=== PATIENT | male | born 1965 | race Caucasian/White ===

== ENCOUNTER 2022-03-20 20:49 | Emergency (ER) | payer MEDICARE ==
[2022-03-20] MEDS ORDERED: BABY ASPIRIN 81 MG CHEW PO ONE (20:55)
--- NOTE | 2022-03-20 20:55 | ERPHSYRPT ---
- History of Present Illness Time Seen by Provider: 03/20/22 20:55 Historian: patient Exam Limitations: no limitations Physician History: This is a 56 y/o white male patient who presents with left ant cp with radiation to left shoulder and left back. pt was out working on lawn when onset of pain occurred. pt took one ntg and 2 baby asa and arrives to ed with 6/10 pain level. onset occurred 45 minutes [employer]. pt states he has had 2 heart attacks in the past. he was told many years ago he had narrowed heart vessels on a cardiac cath. no stents. no cabg. he lives in [facility] now and his last pcp was in [place]. pt has h/o dm, htn, cadz and elevated cholesterol Timing/Duration: today Activities at Onset: activity (lawn work) Quality: tightness Location: other (left ant chest) Chest Pain Radiation: arm (left), back (left) Severity of Pain-Max: moderate Severity of Pain-Current: mild (to moderate) Modifying Factors: Improves With: nitroglycerin, aspirin Prior Chest Pain/Cardiac Workup: cardiac cath, heart attack Nitro Today/Relief: 0.4 mg x 1, provided at home, mild relief Aspirin Treatment Today: 81 mg x 2, provided at home Allergies/Adverse Reactions: No Known Drug Allergies Allergy (Verified 03/20/22 21:03) Home Medications: Cetirizine HCl [Zyrtec] 50 mg PO DAILY 03/20/22 [History] Insulin Glargine [Lantus Insulin] 25 units SQ DAILY 03/20/22 [History] Losartan Potassium 50 mg [Cozaar 50 MG] 50 mg PO DAILY 03/20/22 [History] Metformin HCl Xr 500 mg [Glucophage XR 500 MG] 1,000 mg PO BID 03/20/22 [History] Metoprolol Succinate 50 mg [Toprol Xl 50 MG] 100 mg PO BID 03/20/22 [History] Tamsulosin HCl 0.4 mg [Flomax 0.4 MG] 0.8 mg PO DAILY 03/20/22 [History] hydroCHLOROthiazide [Hydrochlorothiazide] 25 mg PO DAILY 03/20/22 [History] Travel Risk - International Travel Have you traveled outside of the country in past 3 weeks: No - Coronavirus Screening Are you exhibiting any of the following symptoms?: No Close contact with a COVID-19 positive Pt in past 14-21 Days: No - Review of Systems Constitutional: No Symptoms Eyes: No Symptoms Ears, Nose, & Throat: No Symptoms Respiratory: No Symptoms Cardiac: Chest Pain Abdominal/Gastrointestinal: No Symptoms Genitourinary Symptoms: No Symptoms Musculoskeletal: No Symptoms Skin: No Symptoms Neurological: No Symptoms Psychological: No Symptoms Endocrine: No Symptoms Hematologic/Lymphatic: No Symptoms Immunological/Allergic: No Symptoms All Other Systems: Reviewed and Negative - Past Medical History Pertinent Past Medical History: Yes Cardiac History: Coronary Artery Disease, Hypertension Endocrine Medical History: Diabetes Type I - Past Surgical History Past Surgical History: Yes - Nursing Vital Signs Nursing Vital Signs: Initial Vital Signs Temperature 97.3 F 03/20/22 20:52 Pulse Rate 95 H 03/20/22 20:52 Respiratory Rate 15 03/20/22 20:52 Blood Pressure 172/87 03/20/22 20:52 O2 Sat by Pulse Oximetry 98 03/20/22 20:52 Pain Scale Pain Intensity 4 - Physical Exam General Appearance: no apparent distress, alert, anxiety Eye Exam: PERRL/EOMI, eyes nml inspection Ears, Nose, Throat Exam: normal ENT inspection, moist mucous membranes Neck Exam: normal inspection, non-tender, supple, full range of motion Respiratory Exam: normal breath sounds, chest tenderness, lungs clear, airway intact, No respiratory distress Cardiovascular Exam: regular rate/rhythm, normal heart sounds, normal peripheral pulses Gastrointestinal/Abdomen Exam: soft, normal bowel sounds, No tenderness Rectal Exam: not done Back Exam: normal inspection, normal range of motion, No CVA tenderness, No vertebral tenderness Extremity Exam: normal inspection, normal range of motion, pelvis stable Neurologic Exam: alert, oriented x 3, cooperative, color maker formulator II-XII nml as tested, normal mood/affect, nml cerebellar function, nml station & gait, sensation nml Skin Exam: normal color, warm, dry Lymphatic Exam: No adenopathy SpO2 Interpretation: normal O2 Delivery: Room Air - Course Nursing assessment & vital signs reviewed: Yes EKG Interpreted by Me: RATE, Sinus Rhythm, NORMAL AXIS, prolonged QT interval, Non-specific ST Changes, Other (no acute ischemia. borderline prolonged pr interval. no comparison ekg) Ordered Tests: Active Orders 24 hr Category Date Time Status EKG-ER Only STAT Care 03/20/22 20:55 Active IV Insertion STAT Care 03/20/22 20:55 Active CHEST 1 VIEW (PORTABLE) Stat Exams 03/20/22 20:56 Taken CHEST WITH CONTRAST [CT] Stat Exams 03/20/22 21:53 Taken CBC W DIFF Stat Lab 03/20/22 21:17 Completed CMP Stat Lab 03/20/22 21:17 Completed D-DIMER QUANTITATIVE Stat Lab 03/20/22 21:17 Completed NT PRO BNP Stat Lab 03/20/22 21:17 Completed TROPONIN Q3H Lab 03/20/22 21:17 Completed TROPONIN Q3H Lab 03/21/22 00:18 Completed TROPONIN Q3H Lab 03/21/22 03:00 Ordered TROPONIN Q3H Lab 03/21/22 06:00 Ordered TROPONIN Q3H Lab 03/21/22 09:00 Ordered Medication Summary Discontinued Medications Generic Name Dose Route Start Last Admin Trade Name Freq PRN Reason Stop Dose Admin Aspirin 324 mg 03/20/22 20:55 03/20/22 21:14 Aspirin 81 Mg Tab.Chew PO 03/20/22 20:56 162 mg STAT ONE Administration Aspirin Confirm 03/20/22 21:08 Aspirin 81 Mg Tab.Chew Administered 03/20/22 21:09 Dose 162 mg .ROUTE .STK-MED ONE Sodium Chloride 500 mls @ 500 mls/hr 03/20/22 21:53 03/20/22 23:29 Sodium Chloride 0.9% 500 Ml IV 03/20/22 22:52 Infused .Q1H ONE Infusion Sodium Chloride Confirm 03/20/22 21:57 Sodium Chloride 0.9% 500 Ml Administered 03/20/22 21:58 Dose 500 mls @ ud IV .STK-MED ONE Morphine Sulfate 4 mg 03/20/22 21:03 03/20/22 21:13 Morphine Sulfate 4 Mg/Ml Injection IV 03/20/22 21:04 4 mg STAT ONE Administration Morphine Sulfate Confirm 03/20/22 21:08 Morphine Sulfate 4 Mg/Ml Injection Administered 03/20/22 21:09 Dose 4 mg .ROUTE .STK-MED ONE Ondansetron HCl 4 mg 03/20/22 21:03 03/20/22 21:11 Ondansetron Hcl 4 Mg/2 Ml Vial IV 03/20/22 21:04 4 mg STAT ONE Administration Ondansetron HCl Confirm 03/20/22 21:08 Ondansetron Hcl 4 Mg/2 Ml Vial Administered 03/20/22 21:09 Dose 4 mg .ROUTE .STK-MED ONE Lab/Rad Data: Laboratory Result Diagrams 03/20/22 21:17 03/20/22 21:17 Laboratory Results 03/21/22 03/20/22 03/20/22 Range/Units 00:18 21:17 21:17 WBC (4.0-10.5) K/mm3 RBC (4.1-5.6) M/mm3 Hgb (12.5-18.0) gm/dl Hct (42-50) % MCV (78-100) fl MCH (26-32) pg MCHC (32-36) g/dl RDW (11.5-14.0) % Plt Count (150-450) K/mm3 MPV (7.5-11.0) fl Gran % (36.0-66.0) % Eos # (Auto) (0-0.5) Absolute Lymphs (auto) (1.0-4.6) Absolute Monos (auto) (0.0-1.3) Lymphocytes % (24.0-44.0) % Monocytes % (0.0-12.0) % Eosinophils % (0.00-5.0) % Basophils % (0.0-0.4) % Absolute Granulocytes (1.4-6.9) Basophils # (0-0.4) D-Dimer 854 H* (215-500) ng/mL Sodium (137-145) mmol/L Potassium (3.5-5.1) mmol/L Chloride (98-107) mmol/L Carbon Dioxide (22-30) mmol/L Anion Gap (5-15) MEQ/L BUN (9-20) mg/dL Creatinine (0.66-1.25) mg/dL Estimated GFR ML/MIN Glucose (74-106) mg/dL Calcium (8.4-10.2) mg/dL Total Bilirubin (0.2-1.3) mg/dL AST (17-59) U/L ALT (0-50) U/L Alkaline Phosphatase (38-126) U/L Troponin I < 0.012 < 0.012 (0.000-0.034) ng/mL NT-Pro-B Natriuret Pep (0-900) pg/mL Serum Total Protein (6.3-8.2) g/dL Albumin (3.5-5.0) g/dL 03/20/22 03/20/22 Range/Units 21:17 21:17 WBC 7.5 (4.0-10.5) K/mm3 RBC 4.85 (4.1-5.6) M/mm3 Hgb 15.4 (12.5-18.0) gm/dl Hct 40.9 L (42-50) % MCV 84.3 (78-100) fl MCH 31.8 (26-32) pg MCHC 37.7 H (32-36) g/dl RDW 12.9 (11.5-14.0) % Plt Count 168 (150-450) K/mm3 MPV 11.7 H (7.5-11.0) fl Gran % 56.2 (36.0-66.0) % Eos # (Auto) 0.14 (0-0.5) Absolute Lymphs (auto) 2.47 (1.0-4.6) Absolute Monos (auto) 0.63 (0.0-1.3) Lymphocytes % 33.1 (24.0-44.0) % Monocytes % 8.4 (0.0-12.0) % Eosinophils % 1.9 (0.00-5.0) % Basophils % 0.4 (0.0-0.4) % Absolute Granulocytes 4.20 (1.4-6.9) Basophils # 0.03 (0-0.4) D-Dimer (215-500) ng/mL Sodium 136 L (137-145) mmol/L Potassium 3.8 (3.5-5.1) mmol/L Chloride 98 (98-107) mmol/L Carbon Dioxide 26 (22-30) mmol/L Anion Gap 16.0 H (5-15) MEQ/L BUN 13 (9-20) mg/dL Creatinine 0.61 L (0.66-1.25) mg/dL Estimated GFR > 60.0 ML/MIN Glucose 317 H (74-106) mg/dL Calcium 9.0 (8.4-10.2) mg/dL Total Bilirubin 1.00 (0.2-1.3) mg/dL AST 27 (17-59) U/L ALT 26 (0-50) U/L Alkaline Phosphatase 79 (38-126) U/L Troponin I (0.000-0.034) ng/mL NT-Pro-B Natriuret Pep 218 (0-900) pg/mL Serum Total Protein 6.7 (6.3-8.2) g/dL Albumin 4.3 (3.5-5.0) g/dL - Progress Progress: improved, re-examined Air Movement: good Progress Note: 03/20/22 22:17 cxr-no acute cardiopulmonary process Blood Culture(s) Obtained: No Antibiotics given: No Counseled pt/family regarding: lab results, diagnosis, need for follow-up, rad results - Departure Departure Disposition: Home Clinical Impression: Non-cardiac chest pain Condition: Stable Critical Care Time: No Referrals: DOCTOR,NO FAMILY [Primary Care Provider] - Follow up/PCP as directed Additional Instructions: take your medications as prescribed. call your primary provider today for further evaluation and management and referral to a electronic commerce specialist if indicated
[2022-03-20] MEDS ORDERED: Zofran 4 MG/2 ML VIAL IV ONE (21:03)
[2022-03-20] MEDS ORDERED: MORPHINE SULFATE 4 MG INJ IV ONE (21:03)
[2022-03-20] MEDS ORDERED: BABY ASPIRIN 81 MG CHEW ONE (21:08)
[2022-03-20] MEDS ORDERED: MORPHINE SULFATE 4 MG INJ ONE (21:08)
[2022-03-20] MEDS ORDERED: Zofran 4 MG/2 ML VIAL ONE (21:08)
[2022-03-20 21:39] LABS: Basophil (Absolute #) 0.03 (0-0.4); Eosinophil % 1.9 % (0.00-5.0); Eosinophil (Absolute #) 0.14 (0-0.5); Hematocrit 40.9 % (42-50); Hemoglobin 15.4 gm/dl (12.5-18.0); Lymphocyte (Absolute #) 2.47 (1.0-4.6); Lymphocytes % 33.1 % (24.0-44.0); Mean Cell Volume 84.3 fl (78-100); Mean Corpuscular Hemoglobin 31.8 pg (26-32); Mean Corpuscular Hgb Concent. 37.7 g/dl (32-36); Mean Platelet Volume 11.7 fl (7.5-11.0); Monocyte (Absolute #) 0.63 (0.0-1.3); Monocytes % 8.4 % (0.0-12.0); Neutrophil % 56.2 % (36.0-66.0); Platelet Count 168 K/mm3 (150-450); Red Blood Count 4.85 M/mm3 (4.1-5.6); Red Cell Distribution Width 12.9 % (11.5-14.0); White Blood Count 7.5 K/mm3 (4.0-10.5)
[2022-03-20 21:43] LABS: ALBUMIN 4.3 g/dL (3.5-5.0); ALKALINE PHOSPHATASE 79 U/L (38-126); BLOOD UREA NITROGEN 13 mg/dL (9-20); CHLORIDE 98 mmol/L (98-107); Carbon Dioxide 26 mmol/L (22-30); Creatinine 1 0.61 mg/dL (0.66-1.25); EST GLOMERULAR FILTRATION RATE > 60.0 ML/MIN; Glucose 317 mg/dL (74-106); NT PRO BNP 218 pg/mL (0-900); Potassium 3.8 mmol/L (3.5-5.1); SGOT/AST 27 U/L (17-59); SGPT/ALT 26 U/L (0-50); SODIUM 136 mmol/L (137-145); Total Protein 6.7 g/dL (6.3-8.2)
[2022-03-20] MEDS ORDERED: Sodium Chloride 0.9% 500 ML 500 ML IV ONE ×2 (21:53→21:57)
[2022-03-21 01:13] VITALS: BP 155/90; PULSE 79; O2SAT 97
--- NOTE | 2022-03-21 08:43 | XRAY ---
Indication: Chest pain. Elevated d-dimer. Multiple contiguous axial images obtained through the chest using 100 cc Isovue 370 contrast and PE protocol. Comparison: None There is satisfactory opacification of the pulmonary arteries to include the lobar and segmental branches. No pulmonary embolus. Heart not enlarged. Aorta is normal in course and caliber. No pathologic mediastinal/hilar lymphadenopathy. Lungs hyperinflated with inferior left upper lobe subsegmental atelectasis/scarring. No suspicious pulmonary mass, infiltrate, or effusion. Bony thorax intact with superior T12 Schmorl node. Limited upper abdomen demonstrates mild diffuse fatty liver and cholecystectomy clips. Impression: 1. Negative pulmonary embolus. No acute cardiopulmonary abnormalities. 2. Incidental left upper lobe subsegmental atelectasis/scarring, fatty liver, and T12 Schmorl node. Comment: Preliminary interpretation made by C. No critical discrepancy.
--- NOTE | 2022-03-21 08:43 | XRAY ---
Indication: Chest pain. Comparison: None Portable chest demonstrates minimal left midlung fibrosis/scarring. Remaining heart and lungs unremarkable. Bony thorax intact with old left clavicle fracture.
== END 2022-03-21 01:13 | disposition home or self-care (01) ==
LOC: ED 20:49
DX: R07.89 Other chest pain (principal); I10 Essential (primary) hypertension; E10.9 Type 1 diabetes mellitus without complications; I25.10 Atherosclerotic heart disease of native coronary artery without angina pectoris; E78.5 Hyperlipidemia, unspecified; Z79.4 Long term (current) use of insulin; Z79.899 Other long term (current) drug therapy
CPT/HCPCS: 36000; 36415; 71045; 71260; 80053; 83880; 84484; 85025; 85379; 93005; 96360; 96374; 96375; 99285; J2270; J2405; A9270-GY

== ENCOUNTER 2024-03-22 17:27 | Observation (INO) | payer MEDICARE ==
--- NOTE | 2024-03-22 17:31 | ERPHSYRPT ---
- History of Present Illness Source: patient Exam Limitations: no limitations Timing/Duration: yesterday, worse (Symptoms work today) Severity: moderate Modifying Factors: Improves With: medication (New medication dosing of Trulicity started last evening) Associated Symptoms: nausea, vomiting, abdominal pain, loss of appetite, weakness, No shortness of breath, No chest pain Hx Tetanus, Diphtheria Vaccination/Date Given: Yes Hx Influenza Vaccination/Date Given: Yes Hx Pneumococcal Vaccination/Date Given: No <NEYDA STOREY - Last Filed: 03/22/24 19:10> <MICHELLE MORRIS - Last Filed: 03/22/24 21:40> - History of Present Illness Time Seen by Provider: 03/22/24 17:31 Physician History: This is an overweight 58-year-old white male patient who has diabetes and was instructed last evening to double the dose of his Trulicity medication. Within approximately 3 hours after he injected the new dosage, patient began having abdominal pain nausea and vomiting symptoms. The symptoms have persisted throughout the night and today. He feels he is dehydrated. He has significant abdominal pain. Patient denies chest pain. Patient denies shortness of breath. Patient has a history of hypertension, prostate issues, diabetes, coronary disease and COPD. (NEYDA STOREY) Allergies/Adverse Reactions: No Known Drug Allergies Allergy (Verified 03/22/24 17:39) Home Medications: Cetirizine HCl [Zyrtec] 50 mg PO DAILY 03/20/22 [History] Insulin Glargine [Lantus Insulin] 25 units SQ DAILY 03/20/22 [History] Losartan Potassium 50 mg [Cozaar 50 MG] 50 mg PO DAILY 03/20/22 [History] Metformin HCl Xr 500 mg [Glucophage XR 500 MG] 1,000 mg PO BID 03/20/22 [History] Metoprolol Succinate 50 mg [Toprol Xl 50 MG] 100 mg PO BID 03/20/22 [History] Tamsulosin HCl 0.4 mg [Flomax 0.4 MG] 0.8 mg PO DAILY 03/20/22 [History] hydroCHLOROthiazide [Hydrochlorothiazide] 25 mg PO DAILY 03/20/22 [History] Travel Risk - International Travel Have you traveled outside of the country in past 3 weeks: No - Emerging Infectious Disease Are you exhibiting symptoms associated with any current EIDs: Yes Symptoms: Abdominal Pain, Vomitting, Other (Please Comment) (Patient's symptoms are likely not infectious but medication related) <NEYDA STOREY JosiahPonce - Last Filed: 03/22/24 19:10> - Review of Systems Constitutional: Weakness Eyes: No Symptoms Ears, Nose, & Throat: No Symptoms Respiratory: No Symptoms Cardiac: No Symptoms Abdominal/Gastrointestinal: Abdominal Pain, Nausea, Vomiting, Appetite Changes Genitourinary Symptoms: No Symptoms Musculoskeletal: No Symptoms Skin: No Symptoms Neurological: No Symptoms Psychological: No Symptoms Endocrine: No Symptoms Hematologic/Lymphatic: No Symptoms Immunological/Allergic: No Symptoms All Other Systems: Reviewed and Negative <NEYDA STOREY - Last Filed: 03/22/24 19:10> - Past Medical History Pertinent Past Medical History: Yes Neurological History: No Pertinent History ENT History: No Pertinent History Cardiac History: Coronary Artery Disease, Hypertension Respiratory History: COPD Endocrine Medical History: Diabetes Type I Musculoskeletal History: No Pertinent History GI Medical History: No Pertinent History History: No Pertinent History Psycho-Social History: No Pertinent History Male Reproductive Disorders: No Pertinent History Other Medical History: fatty liver - Past Surgical History Past Surgical History: Yes Cardiac: Cardiac Catheterization Gastrointestinal: Cholecystectomy - Social History Smoking Status: Former smoker Exposure to second hand smoke: No Drug Use: none Patient Lives Alone: No <NEYDA STOREY - Last Filed: 03/22/24 19:10> - Physical Exam General Appearance: mild distress (To moderate), alert, anxiety, obese Eye Exam: PERRL/EOMI, eyes nml inspection Ears, Nose, Throat Exam: normal ENT inspection, moist mucous membranes Neck Exam: normal inspection, non-tender, supple, full range of motion Respiratory Exam: normal breath sounds, lungs clear, airway intact, No chest tenderness, No respiratory distress Cardiovascular Exam: tachycardia Gastrointestinal/Abdomen Exam: soft, normal bowel sounds, tenderness (Diffuse), guarding (Diffuse), No rebound Rectal Exam: not done Back Exam: normal inspection, normal range of motion, No CVA tenderness, No vertebral tenderness Extremity Exam: normal inspection, normal range of motion, pelvis stable Neurologic Exam: alert, oriented x 3, cooperative, court administrator II-XII nml as tested, nml cerebellar function, nml station & gait, sensation nml Skin Exam: normal color, warm, dry Lymphatic Exam: No adenopathy SpO2 Interpretation: normal O2 Delivery: Room Air <NEYDA STOREY - Last Filed: 03/22/24 19:10> - Nursing Vital Signs Nursing Vital Signs: Initial Vital Signs Temperature 97.1 F 03/22/24 17:28 Pulse Rate 137 H 03/22/24 17:28 Respiratory Rate 16 03/22/24 17:28 Blood Pressure 128/87 03/22/24 17:28 O2 Sat by Pulse Oximetry 97 03/22/24 17:28 Pain Scale Pain Intensity 7 - Course Nursing assessment & vital signs reviewed: Yes <NEYDA STOREY - Last Filed: 03/22/24 19:10> - Course EKG Interpreted by Me: RATE (135), Sinus Tach, NORMAL AXIS, prolonged QT interval, Non-specific ST Changes, Other (non Specific T wave changes) <MICHELLE MORRIS - Last Filed: 03/22/24 21:40> Ordered Tests: Active Orders 24 hr Category Date Time Status EKG-ER Only STAT Care 03/22/24 17:39 Active IV Insertion STAT Care 03/22/24 17:39 Active ABDOMEN AND PELVIS W/0 CONTRAS [CT] Stat Exams 03/22/24 17:39 Taken AMYLASE Stat Lab 03/22/24 17:50 Completed CBC W DIFF Stat Lab 03/22/24 17:50 Completed CMP Stat Lab 03/22/24 17:50 Completed LIPASE Stat Lab 03/22/24 17:50 Completed MAG [MAGNESIUM] Stat Lab 03/22/24 18:25 Completed POCT GLUCOSE Stat Lab 03/22/24 17:41 Completed POCT GLUCOSE Stat Lab 03/22/24 20:24 Completed POCT GLUCOSE Stat Lab 03/22/24 21:20 Completed TROPONIN Q4H Lab 03/22/24 17:50 Completed TROPONIN Q4H Lab 03/22/24 21:45 Ordered TROPONIN Q4H Lab 03/23/24 01:45 Ordered UA W/RFX UR CULTURE Stat Lab 03/22/24 19:33 Completed VBG [VENOUS BLOOD GAS] Stat Lab 03/22/24 19:55 Completed Transfer Order Routine Transfer 03/22/24 Ordered Medication Summary Generic Name Dose Route Start Last Admin Trade Name Madeline PRN Reason Stop Dose Admin INSULIN REGULAR IN 0.9 % NACL 100 unit in 100 mls @ 8.5 mls/hr 03/22/24 19:58 03/22/24 21:23 Myxredlin 100 Unit/100 Ml Bag IV 04/21/24 19:57 0.11 unit/kg/hr .[id number] PRN 9.5 mls/hr HYPERGLYCEMIA Titration Protocol 0.1 UNIT/KG/HR Sodium Chloride 1,000 mls @ 200 mls/hr 03/22/24 20:45 03/22/24 20:45 Sodium Chloride 0.9% 1000 Ml IV 03/22/24 22:45 200 mls/hr .Q5H TAMARA Administration Discontinued Medications Generic Name Dose Route Start Last Admin Trade Name Madeline PRN Reason Stop Dose Admin Fentanyl Citrate 50 mcg 03/22/24 20:34 03/22/24 20:48 Fentanyl Citrate 100 Mcg/2 Ml* Vial IV 03/22/24 20:35 50 mcg STAT ONE Administration Fentanyl Citrate Confirm 03/22/24 20:41 Fentanyl Citrate 100 Mcg/2 Ml* Vial Administered 03/22/24 20:42 Dose 100 mcg .ROUTE .STK-MED ONE Hydromorphone HCl 1 mg 03/22/24 17:39 03/22/24 18:01 Hydromorphone 1 Mg/1ml Inj IV 03/22/24 17:40 1 mg STAT ONE Administration Hydromorphone HCl Confirm 03/22/24 17:53 Hydromorphone 1 Mg/1ml Inj Administered 03/22/24 17:54 Dose 1 mg .ROUTE .STK-MED ONE Sodium Chloride 1,000 mls @ 999 mls/hr 03/22/24 17:39 03/22/24 19:27 Sodium Chloride 0.9% 1000 Ml IV 03/22/24 18:39 Infused .Q1H1M STA Infusion Sodium Chloride Confirm 03/22/24 17:53 Sodium Chloride 0.9% 1000 Ml Administered 03/22/24 17:54 Dose 1,000 mls @ ud .ROUTE .STK-MED ONE Lactated Ringer's 1,000 mls @ 999 mls/hr 03/22/24 18:25 03/22/24 20:48 Lactated Ringers IV 03/22/24 19:25 Infused .Q1H1M ONE Infusion Lactated Ringer's Confirm 03/22/24 19:43 Lactated Ringers Administered 03/22/24 19:44 Dose 1,000 mls @ ud IV .STK-MED ONE Metoclopramide HCl 10 mg 03/22/24 20:36 03/22/24 20:46 Metoclopramide Hcl 10 Mg/2 Ml Vial IV 03/22/24 20:37 10 mg STAT ONE Administration Metoclopramide HCl Confirm 03/22/24 20:41 Metoclopramide Hcl 10 Mg/2 Ml Vial Administered 03/22/24 20:42 Dose 10 mg .ROUTE .STK-MED ONE Ondansetron HCl 4 mg 03/22/24 17:39 03/22/24 17:59 Ondansetron Hcl 4 Mg/2 Ml Vial IV 03/22/24 17:40 4 mg STAT ONE Administration Ondansetron HCl Confirm 03/22/24 17:53 Ondansetron Hcl 4 Mg/2 Ml Vial Administered 03/22/24 17:54 Dose 4 mg .ROUTE .STK-MED ONE Pantoprazole Sodium 40 mg 03/22/24 17:39 03/22/24 18:00 Pantoprazole 40 Mg Vial IV 03/22/24 17:40 40 mg STAT ONE Administration Pantoprazole Sodium Confirm 03/22/24 17:53 Pantoprazole 40 Mg Vial Administered 03/22/24 17:54 Dose 40 mg IV .STK-MED ONE Lab/Rad Data: Laboratory Result Diagrams 03/22/24 17:50 03/22/24 17:50 Laboratory Results 03/22/24 03/22/24 03/22/24 Range/Units 21:20 20:24 19:55 WBC (4.0-10.5) x10^3/uL RBC (4.1-5.6) x10^6/uL Hgb (12.5-18.0) g/dL Hct (42-50) % MCV (78-100) fL MCH (26-32) pg MCHC (32-36) g/dL RDW (11.5-14.0) % Plt Count (150-450) x10^3/uL MPV (7.5-11.0) fL Gran % (36.0-66.0) % Immature Gran % (Auto) (0.00-0.4) % Nucleat RBC Rel Count (0.00-0.1) % Eos # (Auto) (0-0.5) x10^3/uL Immature Gran # (Auto) (0.00-0.03) x10^3u/L Absolute Lymphs (auto) (1.0-4.6) x10^3/uL Absolute Monos (auto) (0.0-1.3) x10^3/uL Absolute Nucleated RBC (0.00-0.01) x10^3u/L Lymphocytes % (24.0-44.0) % Monocytes % (0.0-12.0) % Eosinophils % (0.00-5.0) % Basophils % (0.0-0.4) % Absolute Granulocytes (1.4-6.9) x10^3/uL Basophils # (0-0.4) x10^3/uL pO2/FiO2 Ratio 75.7 % VBG pH 7.22 L* (7.32-7.42) VBG pCO2 at Pat Temp 33 L (42-55) mm/Hg VBG pO2 at Pat Temp 44 H (25-40) mm/Hg VBG HCO3 13.5 L* (22-28) meq/L VBG O2 Sat (Diamond) 73.2 L (95-100) VBG Base Excess -13.0 L (-2.0-2.0) VBG Hemoglobin 17 VBG Carboxyhemoglobin 2.8 (0.0-6.9) % T HGB POC Potassium 4.5 (3.5-5.1) Sodium (135-145) mmol/L Potassium (3.5-5.1) mmol/L Chloride (98-107) mmol/L Carbon Dioxide (22-30) mmol/L Anion Gap (5-15) MEQ/L BUN (9-20) mg/dL Creatinine (0.66-1.25) mg/dL Estimated GFR ML/MIN Glucose (74-106) mg/dL POC Glucometer 303 H 318 H (74 to 106) mg/dL Calcium (8.4-10.2) mg/dL Magnesium (1.6-2.3) mg/dL Total Bilirubin (0.2-1.3) mg/dL AST (17-59) U/L ALT (0-50) U/L Alkaline Phosphatase (38-126) U/L Troponin I (0.000-0.033) ng/mL Serum Total Protein (6.3-8.2) g/dL Albumin (3.5-5.0) g/dL Amylase (30-110) U/L Lipase (23-300) U/L Urine Color (Yellow) Urine Appearance (Clear) Urine pH (4.6-8.0) Ur Specific [place] (1.005-1.030) Urine Protein (Negative) Urine Glucose (UA) (Negative) mg/dL Urine Ketones (Negative) Urine Blood (Negative) Urine Nitrite (Negative) Urine Bilirubin (Negative) Urine Urobilinogen (0.2) mg/dL Ur Leukocyte Esterase (Negative) U Hyaline Cast (Auto) (0-2) /LPF Urine Microscopic RBC (0-5) /HPF Urine Microscopic WBC (0-5) /HPF Ur Epithelial Cells (None Seen) /HPF Urine Bacteria (None Seen) /HPF Urine Culture Reflexed (NO) 03/22/24 03/22/24 03/22/24 Range/Units 19:33 18:25 17:50 WBC (4.0-10.5) x10^3/uL RBC (4.1-5.6) x10^6/uL Hgb (12.5-18.0) g/dL Hct (42-50) % MCV (78-100) fL MCH (26-32) pg MCHC (32-36) g/dL RDW (11.5-14.0) % Plt Count (150-450) x10^3/uL MPV (7.5-11.0) fL Gran % (36.0-66.0) % Immature Gran % (Auto) (0.00-0.4) % Nucleat RBC Rel Count (0.00-0.1) % Eos # (Auto) (0-0.5) x10^3/uL Immature Gran # (Auto) (0.00-0.03) x10^3u/L Absolute Lymphs (auto) (1.0-4.6) x10^3/uL Absolute Monos (auto) (0.0-1.3) x10^3/uL Absolute Nucleated RBC (0.00-0.01) x10^3u/L Lymphocytes % (24.0-44.0) % Monocytes % (0.0-12.0) % Eosinophils % (0.00-5.0) % Basophils % (0.0-0.4) % Absolute Granulocytes (1.4-6.9) x10^3/uL Basophils # (0-0.4) x10^3/uL pO2/FiO2 Ratio % VBG pH (7.32-7.42) VBG pCO2 at Pat Temp (42-55) mm/Hg VBG pO2 at Pat Temp (25-40) mm/Hg VBG HCO3 (22-28) meq/L VBG O2 Sat (Diamond) (95-100) VBG Base Excess (-2.0-2.0) VBG Hemoglobin VBG Carboxyhemoglobin (0.0-6.9) % T HGB POC Potassium (3.5-5.1) Sodium (135-145) mmol/L Potassium (3.5-5.1) mmol/L Chloride (98-107) mmol/L Carbon Dioxide (22-30) mmol/L Anion Gap (5-15) MEQ/L BUN (9-20) mg/dL Creatinine (0.66-1.25) mg/dL Estimated GFR ML/MIN Glucose (74-106) mg/dL POC Glucometer (74 to 106) mg/dL Calcium (8.4-10.2) mg/dL Magnesium 2.0 (1.6-2.3) mg/dL Total Bilirubin (0.2-1.3) mg/dL AST (17-59) U/L ALT (0-50) U/L Alkaline Phosphatase (38-126) U/L Troponin I < 0.012 (0.000-0.033) ng/mL Serum Total Protein (6.3-8.2) g/dL Albumin (3.5-5.0) g/dL Amylase (30-110) U/L Lipase (23-300) U/L Urine Color Yellow (Yellow) Urine Appearance Clear (Clear) Urine pH 5.0 (4.6-8.0) Ur Specific [place] 1.025 (1.005-1.030) Urine Protein 30 (Negative) Urine Glucose (UA) >=1000 A (Negative) mg/dL Urine Ketones >=160 A (Negative) Urine Blood Negative (Negative) Urine Nitrite Negative (Negative) Urine Bilirubin Negative (Negative) Urine Urobilinogen 1.0 A (0.2) mg/dL Ur Leukocyte Esterase Negative (Negative) U Hyaline Cast (Auto) 11-20 (0-2) /LPF Urine Microscopic RBC 0-2 (0-5) /HPF Urine Microscopic WBC 0-2 (0-5) /HPF Ur Epithelial Cells None Seen (None Seen) /HPF Urine Bacteria None Seen (None Seen) /HPF Urine Culture Reflexed NO (NO) 03/22/24 03/22/24 03/22/24 Range/Units 17:50 17:50 17:41 WBC 20.6 H (4.0-10.5) x10^3/uL RBC 5.95 H (4.1-5.6) x10^6/uL Hgb 17.8 (12.5-18.0) g/dL Hct 51.2 H (42-50) % MCV 86.1 (78-100) fL MCH 29.9 (26-32) pg MCHC 34.8 (32-36) g/dL RDW 12.4 (11.5-14.0) % Plt Count 357 (150-450) x10^3/uL MPV 10.6 (7.5-11.0) fL Gran % 84.9 H (36.0-66.0) % Immature Gran % (Auto) 0.9 H (0.00-0.4) % Nucleat RBC Rel Count 0.0 (0.00-0.1) % Eos # (Auto) 0 (0-0.5) x10^3/uL Immature Gran # (Auto) 0.18 H (0.00-0.03) x10^3u/L Absolute Lymphs (auto) 2.12 (1.0-4.6) x10^3/uL Absolute Monos (auto) 0.72 (0.0-1.3) x10^3/uL Absolute Nucleated RBC 0.00 (0.00-0.01) x10^3u/L Lymphocytes % 10.3 L (24.0-44.0) % Monocytes % 3.5 (0.0-12.0) % Eosinophils % 0.0 (0.00-5.0) % Basophils % 0.4 (0.0-0.4) % Absolute Granulocytes 17.53 H (1.4-6.9) x10^3/uL Basophils # 0.09 (0-0.4) x10^3/uL pO2/FiO2 Ratio % VBG pH (7.32-7.42) VBG pCO2 at Pat Temp (42-55) mm/Hg VBG pO2 at Pat Temp (25-40) mm/Hg VBG HCO3 (22-28) meq/L VBG O2 Sat (Diamond) (95-100) VBG Base Excess (-2.0-2.0) VBG Hemoglobin VBG Carboxyhemoglobin (0.0-6.9) % T HGB POC Potassium (3.5-5.1) Sodium 137 (135-145) mmol/L Potassium 4.7 (3.5-5.1) mmol/L Chloride 95 L (98-107) mmol/L Carbon Dioxide 9 L* (22-30) mmol/L Anion Gap 37.1 H (5-15) MEQ/L BUN 18 (9-20) mg/dL Creatinine 1.13 (0.66-1.25) mg/dL Estimated GFR 75.3 ML/MIN Glucose 384 H (74-106) mg/dL POC Glucometer 353 H (74 to 106) mg/dL Calcium 9.9 (8.4-10.2) mg/dL Magnesium (1.6-2.3) mg/dL Total Bilirubin 1.00 (0.2-1.3) mg/dL AST 20 (17-59) U/L ALT 18 (0-50) U/L Alkaline Phosphatase 116 (38-126) U/L Troponin I (0.000-0.033) ng/mL Serum Total Protein 8.9 H (6.3-8.2) g/dL Albumin 5.0 (3.5-5.0) g/dL Amylase 54 (30-110) U/L Lipase 48 (23-300) U/L Urine Color (Yellow) Urine Appearance (Clear) Urine pH (4.6-8.0) Ur Specific [place] (1.005-1.030) Urine Protein (Negative) Urine Glucose (UA) (Negative) mg/dL Urine Ketones (Negative) Urine Blood (Negative) Urine Nitrite (Negative) Urine Bilirubin (Negative) Urine Urobilinogen (0.2) mg/dL Ur Leukocyte Esterase (Negative) U Hyaline Cast (Auto) (0-2) /LPF Urine Microscopic RBC (0-5) /HPF Urine Microscopic WBC (0-5) /HPF Ur Epithelial Cells (None Seen) /HPF Urine Bacteria (None Seen) /HPF Urine Culture Reflexed (NO) - Progress Progress: improved, pain not gone completely, re-examined <NEYDA STOREY - Last Filed: 03/22/24 19:10> - Progress Discussed with DrPonce: Other (Dr. Nichols hospitalist 2030) Counseled pt/family regarding: lab results, diagnosis, rad results <MICHELLE MORRIS - Last Filed: 03/22/24 21:40> - Progress Progress Note: 03/22/24 18:22 My medical decision making and the assignment of moderate level complexity to this patient's medical issue today is based on review the patient's past medical history, review of the patient's medication list, review the patient drug allergy list, history present illness and physical findings on examination. The workup in this patient includes placement of an intravenous line, infusion of normal saline solution, infusion of 1 mg Dilaudid intravenously, infusion of 4 mg intravenous Zofran, infusion of 40 mg intravenous Protonix, CBC, CMP, amylase, lipase, urinalysis, CT scan of the abdomen pelvis without contrast. Differential diagnosis includes pancreatitis, medication side effect, dehydration, electrolyte abnormalities 03/22/24 19:10 Transfer of care to Dr. Morris at shift change. He will follow-up on pending s tudi and make final disposition. (NEYDA STOREY) Patient is checked out to me at shift change from Dr. Merrill with pending workup. Patient presented with intractable nausea vomiting abdominal pain after increasing dose of Trulicity yesterday. Patient was tachycardic with heart rate in 130s. He is given fluid boluses x 2. Workup showed white count of 20, chemistries consistent with DKA with a glucose in the 380s, gap of 37 and bicarb of 9. I have checked VBG and has a pH of 7.22, CT abdomen pelvis showed gastric distention with possible gastritis/gastroparesis. Also has some lung mass which is partially visualized. This is an incidental finding and patient does not have any difficulty breathing. This needs further evaluation. I have started him on insulin per DKA protocol. Discussed with Dr. Nichols, reviewed history, workup and agreed with admission. I have shared the results of workup with patient and plan of admission and current management which she understands and agrees. 03/22/24 20:26 (MICHELLE MORRIS) Medical Desision Making - Independent Historian Additional History obtained from: Spouse <NEYDA STOREY - Last Filed: 03/22/24 19:10> - Discussion of managment Care discussed with:: hospitalist (Dr. Nichols) Reviewed:: Test results Agreed on:: Treatment plan, place in obs Will see patient: in hospital - Diagnostic Testing Diagnostic test were ordered, analyzed, and reviewed by me: Yes Radiological Interpretation: Reviewed by me, Teleradiologist Report - Risk of complications The pt has a high risk of morbidity or mortality based on: Decision regarding hospitilization or escalation of hosp level of care <MICHELLE MORRIS - Last Filed: 03/22/24 21:40> - Departure Departure Disposition: Observation Critical Care Time: No <NEYDA STOREY - Last Filed: 03/22/24 19:10> - Departure Departure Disposition: Observation <MICHELLE MORRIS - Last Filed: 03/22/24 21:40> - Departure Clinical Impression: Abdominal pain, Vomiting, DKA (diabetic ketoacidosis), Leukocytosis Condition: Stable Referrals: DOCTOR,NO FAMILY [Primary Care Provider] - Follow up/PCP as directed
[2024-03-22] MEDS ORDERED: Sodium Chloride 0.9% 1000 ML 1,000 ML ONE ×2 (17:53→20:41)
[2024-03-22] MEDS ORDERED: Hydromorphone 1 mg/ml Injection ONE (17:53)
[2024-03-22] MEDS ORDERED: PROTONIX 40 MG IV IV ONE (17:53)
[2024-03-22] MEDS ORDERED: Zofran 4 MG/2 ML VIAL ONE (17:53)
[2024-03-22] MEDS: Sodium Chloride 0.9% 1000 ML 1,000 ML IV STA (17:58)
[2024-03-22 17:59] LABS: Absolute Neutrophil Ct (ANC) 17.53 x10^3/uL (1.4-6.9); BASOPHIL % 0.4 % (0.0-0.4); Basophil (Absolute #) 0.09 x10^3/uL (0-0.4); Eosinophil (Absolute #) 0 x10^3/uL (0-0.5); Hematocrit 51.2 % (42-50); Hemoglobin 17.8 g/dL (12.5-18.0); IMMATURE GRAN # 0.18 x10^3u/L (0.00-0.03); IMMATURE GRAN % 0.9 % (0.00-0.4); Lymphocyte (Absolute #) 2.12 x10^3/uL (1.0-4.6); Lymphocytes % 10.3 % (24.0-44.0); Mean Cell Volume 86.1 fL (78-100); Mean Corpuscular Hemoglobin 29.9 pg (26-32); Mean Corpuscular Hgb Concent. 34.8 g/dL (32-36); Mean Platelet Volume 10.6 fL (7.5-11.0); Monocyte (Absolute #) 0.72 x10^3/uL (0.0-1.3); Monocytes % 3.5 % (0.0-12.0); Neutrophil % 84.9 % (36.0-66.0); Platelet Count 357 x10^3/uL (150-450); Red Blood Count 5.95 x10^6/uL (4.1-5.6); Red Cell Distribution Width 12.4 % (11.5-14.0); White Blood Count 20.6 x10^3/uL (4.0-10.5)
[2024-03-22] MEDS: Zofran 4 MG/2 ML VIAL IV ONE (17:59)
[2024-03-22] MEDS: PROTONIX 40 MG IV IV ONE (18:00)
[2024-03-22] MEDS: Hydromorphone 1 mg/ml Injection IV ONE (18:01)
[2024-03-22 18:12] LABS: ANION GAP 37.1 MEQ/L (5-15); Calcium 9.9 mg/dL (8.4-10.2); Creatinine 1 1.13 mg/dL (0.66-1.25); EST GLOMERULAR FILTRATION RATE 75.3 ML/MIN; Potassium 4.7 mmol/L (3.5-5.1); Total Protein 8.9 g/dL (6.3-8.2)
[2024-03-22] MEDS ORDERED: Lactated Ringers 1,000 ML IV ONE (19:43)
[2024-03-22] MEDS: Lactated Ringers 1,000 ML IV ONE (19:44)
[2024-03-22 20:05] LABS: Appearance Clear (Clear); Bacteria None Seen /HPF (None Seen); Bilirubin Negative (Negative); Blood Negative (Negative); Epithelial Cells None Seen /HPF (None Seen); Glucose, Urine >=1000 mg/dL (Negative); Ketones >=160 (Negative); Leukocyte Esterase Negative (Negative); Nitrite Negative (Negative); Protein,Urine Dip 30 (Negative); RBC 0-2 /HPF (0-5); Specific Gravity 1.025 (1.005-1.030); WBC 0-2 /HPF (0-5)
[2024-03-22 20:06] LABS: ADD URINE CULTURE? NO (NO)
[2024-03-22] MEDS: MYXREDLIN 100 UNIT/100 ML BAG 100 UNIT/100 ML PLAST..BAG IV PRN (20:29)
[2024-03-22 20:36] LABS: VBG HCO3- 13.5 meq/L (22-28); VBG pH 7.22 (7.32-7.42)
[2024-03-22 20:37] LABS: VBG CARBOXYHEMOGLOBIN 2.8 % T HGB (0.0-6.9); VBG FIO2 75.7 %; VBG O2 SATURATION 73.2 (95-100); VBG POTASSIUM 4.5 (3.5-5.1)
[2024-03-22] MEDS ORDERED: SUBLIMAZE 100 MCG/2 ML ONE (20:41)
[2024-03-22] MEDS ORDERED: Reglan 10 MG/2 ML ONE (20:41)
[2024-03-22] MEDS: Sodium Chloride 0.9% 1000 ML 1,000 ML IV SCH (20:45)
[2024-03-22] MEDS: Reglan 10 MG/2 ML IV ONE (20:46)
[2024-03-22] MEDS: SUBLIMAZE 100 MCG/2 ML IV ONE (20:48)
--- NOTE | 2024-03-22 22:21 | XRAY ---
Indication: Abdomen pain and vomiting. Multiple contiguous axial images obtained through the abdomen and pelvis without contrast. Comparison: None Lung bases are hyperinflated. Right lower lobe demonstrates at least 3 incompletely visualized irregular masslike opacities with surrounding groundglass opacities. Largest measures 1.9 x 2.4 cm. Malignancy is of primary concern. Posterior medial left lower lobe demonstrates a few subcentimeter noncalcified nodularities. Heart not enlarged. Stomach is moderately fluid distended with prominent rugal folds either from recent ingestion versus hypersecretory state such as gastritis versus gastroparesis. Noncontrasted small and large bowel loops appear normal in course and caliber and nonobstructed. Mild fatty liver. Previous cholecystectomy. No free fluid/air. Remaining liver, pancreas, spleen, adrenal glands, kidneys, ureters, and bladder are unremarkable for noncontrast exam. Mild scattered aortoiliac calcifications without AAA. Osseous structures intact with minimal generative changes throughout spine and both hips. Previous ventral hernia repair with intact mesh graft. Impression: 1. Incompletely visualized right lower lobe masslike opacities concerning for malignancy. A few subcentimeter left lower lobe noncalcified nodularities. Dedicated CT chest may yield further information. 2. Moderately fluid distended stomach with prominent rugal folds either from recent ingestion versus gastritis versus gastroparesis. Negative for distal small bowel obstruction. 3. Chronic findings including fatty liver, arteriosclerotic disease, and chronic bony findings.
[2024-03-23] MEDS: Dextrose 5%-NS IV Solution 1000 ML 1,000 ML IV SCH (00:46)
[2024-03-23] MEDS ORDERED: Zofran 4 MG/2 ML VIAL IV PRN (00:46)
--- NOTE | 2024-03-23 00:46 | PCM.HP ---
History of Present Illness - Chief Complaint Chief Complaint: DKA Date: 03/23/24 History of Present Illness: Mr. Richardson is a 58 year-old gentleman with HTN, DM1, BPH, CAD, and COPD who presents with DKA. He admits to abdominal pain, nausea, and vomiting that suddenly developed after administering a double dose of Trulicity as recommended by his PCP. Upon arrival to [place], laboratory data revealed a leukocytosis, DKA and a Cr of 1.[address] A/P revealed gastroparesis. On my examination, he is resting comfortably denying any current fevers, chills, nausea, vomiting, diarrhea, syncope, presyncope, visual changes, orthopnea, PND, odynophagia, dysphagia, chest pain, shortness of breath, belly pain, dysuria, hematuria, melena, hematochezia, or neurological changes. All other systems were reviewed and were negative. - Review of Systems Constitutional: Other ( PER HPI) Medications & Allergies Home Medications: Home Medication List Cetirizine HCl [Zyrtec] 50 mg PO DAILY 03/20/22 [History Confirmed 03/22/24] Insulin Glargine [Lantus Insulin] 68 units SQ HS 03/20/22 [History Confirmed 03/22/24] Losartan Potassium 50 mg [Cozaar 50 MG] 50 mg PO DAILY 03/20/22 [History Confirmed 03/22/24] Metformin HCl Xr 500 mg [Glucophage XR 500 MG] 1,000 mg PO BID 03/20/22 [History Confirmed 03/22/24] Metoprolol Succinate 50 mg [Toprol Xl 50 MG] 100 mg PO BID 03/20/22 [History Confirmed 03/22/24] Tamsulosin HCl 0.4 mg [Flomax 0.4 MG] 0.8 mg PO HS 03/20/22 [History Confirmed 03/22/24] hydroCHLOROthiazide [Hydrochlorothiazide] 25 mg PO DAILY 03/20/22 [History Confirmed 03/22/24] Buspirone HCl 5 mg [Buspar 5 mg] 10 mg PO DAILY 03/22/24 [History Confirmed 03/22/24] Empagliflozin [Jardiance] 10 mg PO DAILY 03/22/24 [History Confirmed 03/22/24] Esomeprazole Magnesium [Nexium 24Hr] 20 mg PO DAILY 03/22/24 [History Confirmed 03/22/24] Ezetimibe 10 mg [Zetia 10 MG] 10 mg PO HS 03/22/24 [History Confirmed 03/22/24] Oxycodone HCl/Acetaminophen [Percocet 10-325 mg Tablet] 10 - 325 mg PO TID 03/22/24 [History Confirmed 03/22/24] Pregabalin [Lyrica 100Mg] 200 mg PO TID 03/22/24 [History Confirmed 03/22/24] Tiotropium [place] [Spiriva Handihaler] 18 mcg PO DAILY 03/22/24 [History Confirmed 03/22/24] Tizanidine HCl [Zanaflex] 2 mg PO CLARIFY 03/22/24 [History Confirmed 03/22/24] Torsemide 10 mg PO DAILY 03/22/24 [History Confirmed 03/22/24] Venlafaxine HCl [Venlafaxine HCl ER] 150 mg PO DAILY 03/22/24 [History Confirmed 03/22/24] Allergies/Adverse Reactions: Allergies Allergy/AdvReac Type Severity Reaction Status Date / Time No Known Drug Allergies Allergy Verified 03/22/24 17:39 - Past Medical History Past Medical History: Yes Neurological History: Peripheral Neuropathy, Stroke ENT History: No Pertinent History Cardiac History: Congestive Heart Failure Respiratory History: Asthma, CHF, COPD Endocrine Medical History: Diabetes Type II, Liver Disease Musculoskelatal History: Arthritis GI Medical History: Gallbladder Disease History: No Pertinent History Pyscho-Social History: Anxiety, Depression Male Reproductive Disorders: No Pertinent History Comment: fatty liver - Past Surgical History Past Surgical History: Yes Neuro Surgical History: No Pertinent History Cardiac History: Cardiac Catheterization Respiratory Surgery: No Pertinent History GI Surgical History: Cholecystectomy Genitourinary Surgical Hx: No Pertinent History Musculskeletal Surgical Hx: No Pertinent History Male Surgical History: No Pertinent History - Social History Smoking Status: Former smoker Exposure to second hand smoke: No Alcohol: None Drug Use: none - Social Determinants of Health Will the patient participate in the screening: Yes Do you worry about a steady place to live?: No Do you have any problems with any of the following?: No known problems In the past 12 months,have you had to go without utilities?: No Have you or anyone in your house had to go without enough: No Transportation Issues: No Has anyone in your support network made you feel unsafe?: No Does the patient want assistance with any of the above?: No - Physical Exam Vital Signs: Vital Signs - 24 hr Temp Pulse Resp BP BP Pulse Ox 03/22/24 23:02 97 03/22/24 22:58 97.7 F 108 H 18 144/80 97 03/22/24 22:52 97 03/22/24 22:46 113 H 03/22/24 21:45 110 H 17 124/82 94 L 03/22/24 21:30 112 H 15 114/74 97 03/22/24 21:15 112 H 17 130/74 95 03/22/24 21:00 116 H 17 147/79 95 03/22/24 20:50 118 H 20 140/81 98 03/22/24 20:40 113 H 17 99 03/22/24 20:30 118 H 20 98 03/22/24 20:20 117 H 17 98 03/22/24 20:15 119 H 24 96 03/22/24 18:15 127 H 21 109/65 95 03/22/24 18:00 127 H 17 101/83 95 03/22/24 17:50 130 H 17 132/86 97 03/22/24 17:32 131 H 22 128/87 03/22/24 17:28 97.1 F 137 H 16 128/87 97 General Appearance: no apparent distress, alert Neurologic Exam: alert, oriented x 3, cooperative, normal mood/affect, nml cerebellar function, nml station & gait, sensation nml, No motor deficits Eye Exam: PERRL/EOMI, eyes nml inspection Ears, Nose, Throat Exam: normal ENT inspection, TMs normal, pharynx normal, moist mucous membranes Neck Exam: normal inspection, non-tender, supple, full range of motion Respiratory Exam: normal breath sounds, lungs clear, No respiratory distress Cardiovascular Exam: regular rate/rhythm, normal heart sounds, normal peripheral pulses Gastrointestinal/Abdomen Exam: soft, normal bowel sounds, No tenderness, No mass Back Exam: normal inspection, normal range of motion, No CVA tenderness, No vertebral tenderness Extremity Exam: normal inspection, normal range of motion, pelvis stable Skin Exam: normal color, warm, dry, No rash Lymphatic Exam: No adenopathy Results - Labs Lab/Micro Results: Lab Results-Last 24 Hours 03/22/24 03/22/24 03/22/24 Range/Units 17:41 17:50 17:50 WBC 20.6 H (4.0-10.5) x10^3/uL RBC 5.95 H (4.1-5.6) x10^6/uL Hgb 17.8 (12.5-18.0) g/dL Hct 51.2 H (42-50) % MCV 86.1 (78-100) fL MCH 29.9 (26-32) pg MCHC 34.8 (32-36) g/dL RDW 12.4 (11.5-14.0) % Plt Count 357 (150-450) x10^3/uL MPV 10.6 (7.5-11.0) fL Gran % 84.9 H (36.0-66.0) % Immature Gran % (Auto) 0.9 H (0.00-0.4) % Nucleat RBC Rel Count 0.0 (0.00-0.1) % Eos # (Auto) 0 (0-0.5) x10^3/uL Immature Gran # (Auto) 0.18 H (0.00-0.03) x10^3u/L Absolute Lymphs (auto) 2.12 (1.0-4.6) x10^3/uL Absolute Monos (auto) 0.72 (0.0-1.3) x10^3/uL Absolute Nucleated RBC 0.00 (0.00-0.01) x10^3u/L Lymphocytes % 10.3 L (24.0-44.0) % Monocytes % 3.5 (0.0-12.0) % Eosinophils % 0.0 (0.00-5.0) % Basophils % 0.4 (0.0-0.4) % Absolute Granulocytes 17.53 H (1.4-6.9) x10^3/uL Basophils # 0.09 (0-0.4) x10^3/uL pO2/FiO2 Ratio % VBG pH (7.32-7.42) VBG pCO2 at Pat Temp (42-55) mm/Hg VBG pO2 at Pat Temp (25-40) mm/Hg VBG HCO3 (22-28) meq/L VBG O2 Sat (Diamond) (95-100) VBG Base Excess (-2.0-2.0) VBG Hemoglobin VBG Carboxyhemoglobin (0.0-6.9) % T HGB POC Potassium (3.5-5.1) Sodium 137 (135-145) mmol/L Potassium 4.7 (3.5-5.1) mmol/L Chloride 95 L (98-107) mmol/L Carbon Dioxide 9 L* (22-30) mmol/L Anion Gap 37.1 H (5-15) MEQ/L BUN 18 (9-20) mg/dL Creatinine 1.13 (0.66-1.25) mg/dL Estimated GFR 75.3 ML/MIN Glucose 384 H (74-106) mg/dL POC Glucometer 353 H (74 to 106) mg/dL Calcium 9.9 (8.4-10.2) mg/dL Magnesium (1.6-2.3) mg/dL Total Bilirubin 1.00 (0.2-1.3) mg/dL AST 20 (17-59) U/L ALT 18 (0-50) U/L Alkaline Phosphatase 116 (38-126) U/L Troponin I (0.000-0.033) ng/mL Serum Total Protein 8.9 H (6.3-8.2) g/dL Albumin 5.0 (3.5-5.0) g/dL Amylase 54 (30-110) U/L Lipase 48 (23-300) U/L Urine Color (Yellow) Urine Appearance (Clear) Urine pH (4.6-8.0) Ur Specific [place] (1.005-1.030) Urine Protein (Negative) Urine Glucose (UA) (Negative) mg/dL Urine Ketones (Negative) Urine Blood (Negative) Urine Nitrite (Negative) Urine Bilirubin (Negative) Urine Urobilinogen (0.2) mg/dL Ur Leukocyte Esterase (Negative) U Hyaline Cast (Auto) (0-2) /LPF Urine Microscopic RBC (0-5) /HPF Urine Microscopic WBC (0-5) /HPF Ur Epithelial Cells (None Seen) /HPF Urine Bacteria (None Seen) /HPF Urine Culture Reflexed (NO) 03/22/24 03/22/24 03/22/24 Range/Units 17:50 18:25 19:33 WBC (4.0-10.5) x10^3/uL RBC (4.1-5.6) x10^6/uL Hgb (12.5-18.0) g/dL Hct (42-50) % MCV (78-100) fL MCH (26-32) pg MCHC (32-36) g/dL RDW (11.5-14.0) % Plt Count (150-450) x10^3/uL MPV (7.5-11.0) fL Gran % (36.0-66.0) % Immature Gran % (Auto) (0.00-0.4) % Nucleat RBC Rel Count (0.00-0.1) % Eos # (Auto) (0-0.5) x10^3/uL Immature Gran # (Auto) (0.00-0.03) x10^3u/L Absolute Lymphs (auto) (1.0-4.6) x10^3/uL Absolute Monos (auto) (0.0-1.3) x10^3/uL Absolute Nucleated RBC (0.00-0.01) x10^3u/L Lymphocytes % (24.0-44.0) % Monocytes % (0.0-12.0) % Eosinophils % (0.00-5.0) % Basophils % (0.0-0.4) % Absolute Granulocytes (1.4-6.9) x10^3/uL Basophils # (0-0.4) x10^3/uL pO2/FiO2 Ratio % VBG pH (7.32-7.42) VBG pCO2 at Pat Temp (42-55) mm/Hg VBG pO2 at Pat Temp (25-40) mm/Hg VBG HCO3 (22-28) meq/L VBG O2 Sat (Diamond) (95-100) VBG Base Excess (-2.0-2.0) VBG Hemoglobin VBG Carboxyhemoglobin (0.0-6.9) % T HGB POC Potassium (3.5-5.1) Sodium (135-145) mmol/L Potassium (3.5-5.1) mmol/L Chloride (98-107) mmol/L Carbon Dioxide (22-30) mmol/L Anion Gap (5-15) MEQ/L BUN (9-20) mg/dL Creatinine (0.66-1.25) mg/dL Estimated GFR ML/MIN Glucose (74-106) mg/dL POC Glucometer (74 to 106) mg/dL Calcium (8.4-10.2) mg/dL Magnesium 2.0 (1.6-2.3) mg/dL Total Bilirubin (0.2-1.3) mg/dL AST (17-59) U/L ALT (0-50) U/L Alkaline Phosphatase (38-126) U/L Troponin I < 0.012 (0.000-0.033) ng/mL Serum Total Protein (6.3-8.2) g/dL Albumin (3.5-5.0) g/dL Amylase (30-110) U/L Lipase (23-300) U/L Urine Color Yellow (Yellow) Urine Appearance Clear (Clear) Urine pH 5.0 (4.6-8.0) Ur Specific [place] 1.025 (1.005-1.030) Urine Protein 30 (Negative) Urine Glucose (UA) >=1000 A (Negative) mg/dL Urine Ketones >=160 A (Negative) Urine Blood Negative (Negative) Urine Nitrite Negative (Negative) Urine Bilirubin Negative (Negative) Urine Urobilinogen 1.0 A (0.2) mg/dL Ur Leukocyte Esterase Negative (Negative) U Hyaline Cast (Auto) 11-20 (0-2) /LPF Urine Microscopic RBC 0-2 (0-5) /HPF Urine Microscopic WBC 0-2 (0-5) /HPF Ur Epithelial Cells None Seen (None Seen) /HPF Urine Bacteria None Seen (None Seen) /HPF Urine Culture Reflexed NO (NO) 03/22/24 03/22/24 03/22/24 Range/Units 19:55 20:24 21:20 WBC (4.0-10.5) x10^3/uL RBC (4.1-5.6) x10^6/uL Hgb (12.5-18.0) g/dL Hct (42-50) % MCV (78-100) fL MCH (26-32) pg MCHC (32-36) g/dL RDW (11.5-14.0) % Plt Count (150-450) x10^3/uL MPV (7.5-11.0) fL Gran % (36.0-66.0) % Immature Gran % (Auto) (0.00-0.4) % Nucleat RBC Rel Count (0.00-0.1) % Eos # (Auto) (0-0.5) x10^3/uL Immature Gran # (Auto) (0.00-0.03) x10^3u/L Absolute Lymphs (auto) (1.0-4.6) x10^3/uL Absolute Monos (auto) (0.0-1.3) x10^3/uL Absolute Nucleated RBC (0.00-0.01) x10^3u/L Lymphocytes % (24.0-44.0) % Monocytes % (0.0-12.0) % Eosinophils % (0.00-5.0) % Basophils % (0.0-0.4) % Absolute Granulocytes (1.4-6.9) x10^3/uL Basophils # (0-0.4) x10^3/uL pO2/FiO2 Ratio 75.7 % VBG pH 7.22 L* (7.32-7.42) VBG pCO2 at Pat Temp 33 L (42-55) mm/Hg VBG pO2 at Pat Temp 44 H (25-40) mm/Hg VBG HCO3 13.5 L* (22-28) meq/L VBG O2 Sat (Diamond) 73.2 L (95-100) VBG Base Excess -13.0 L (-2.0-2.0) VBG Hemoglobin 17 VBG Carboxyhemoglobin 2.8 (0.0-6.9) % T HGB POC Potassium 4.5 (3.5-5.1) Sodium (135-145) mmol/L Potassium (3.5-5.1) mmol/L Chloride (98-107) mmol/L Carbon Dioxide (22-30) mmol/L Anion Gap (5-15) MEQ/L BUN (9-20) mg/dL Creatinine (0.66-1.25) mg/dL Estimated GFR ML/MIN Glucose (74-106) mg/dL POC Glucometer 318 H 303 H (74 to 106) mg/dL Calcium (8.4-10.2) mg/dL Magnesium (1.6-2.3) mg/dL Total Bilirubin (0.2-1.3) mg/dL AST (17-59) U/L ALT (0-50) U/L Alkaline Phosphatase (38-126) U/L Troponin I (0.000-0.033) ng/mL Serum Total Protein (6.3-8.2) g/dL Albumin (3.5-5.0) g/dL Amylase (30-110) U/L Lipase (23-300) U/L Urine Color (Yellow) Urine Appearance (Clear) Urine pH (4.6-8.0) Ur Specific [place] (1.005-1.030) Urine Protein (Negative) Urine Glucose (UA) (Negative) mg/dL Urine Ketones (Negative) Urine Blood (Negative) Urine Nitrite (Negative) Urine Bilirubin (Negative) Urine Urobilinogen (0.2) mg/dL Ur Leukocyte Esterase (Negative) U Hyaline Cast (Auto) (0-2) /LPF Urine Microscopic RBC (0-5) /HPF Urine Microscopic WBC (0-5) /HPF Ur Epithelial Cells (None Seen) /HPF Urine Bacteria (None Seen) /HPF Urine Culture Reflexed (NO) 03/22/24 03/22/24 03/22/24 Range/Units 21:35 22:17 23:19 WBC (4.0-10.5) x10^3/uL RBC (4.1-5.6) x10^6/uL Hgb (12.5-18.0) g/dL Hct (42-50) % MCV (78-100) fL MCH (26-32) pg MCHC (32-36) g/dL RDW (11.5-14.0) % Plt Count (150-450) x10^3/uL MPV (7.5-11.0) fL Gran % (36.0-66.0) % Immature Gran % (Auto) (0.00-0.4) % Nucleat RBC Rel Count (0.00-0.1) % Eos # (Auto) (0-0.5) x10^3/uL Immature Gran # (Auto) (0.00-0.03) x10^3u/L Absolute Lymphs (auto) (1.0-4.6) x10^3/uL Absolute Monos (auto) (0.0-1.3) x10^3/uL Absolute Nucleated RBC (0.00-0.01) x10^3u/L Lymphocytes % (24.0-44.0) % Monocytes % (0.0-12.0) % Eosinophils % (0.00-5.0) % Basophils % (0.0-0.4) % Absolute Granulocytes (1.4-6.9) x10^3/uL Basophils # (0-0.4) x10^3/uL pO2/FiO2 Ratio % VBG pH (7.32-7.42) VBG pCO2 at Pat Temp (42-55) mm/Hg VBG pO2 at Pat Temp (25-40) mm/Hg VBG HCO3 (22-28) meq/L VBG O2 Sat (Diamond) (95-100) VBG Base Excess (-2.0-2.0) VBG Hemoglobin VBG Carboxyhemoglobin (0.0-6.9) % T HGB POC Potassium (3.5-5.1) Sodium (135-145) mmol/L Potassium (3.5-5.1) mmol/L Chloride (98-107) mmol/L Carbon Dioxide (22-30) mmol/L Anion Gap (5-15) MEQ/L BUN (9-20) mg/dL Creatinine (0.66-1.25) mg/dL Estimated GFR ML/MIN Glucose (74-106) mg/dL POC Glucometer 251 H 186 H (74 to 106) mg/dL Calcium (8.4-10.2) mg/dL Magnesium (1.6-2.3) mg/dL Total Bilirubin (0.2-1.3) mg/dL AST (17-59) U/L ALT (0-50) U/L Alkaline Phosphatase (38-126) U/L Troponin I < 0.012 (0.000-0.033) ng/mL Serum Total Protein (6.3-8.2) g/dL Albumin (3.5-5.0) g/dL Amylase (30-110) U/L Lipase (23-300) U/L Urine Color (Yellow) Urine Appearance (Clear) Urine pH (4.6-8.0) Ur Specific [place] (1.005-1.030) Urine Protein (Negative) Urine Glucose (UA) (Negative) mg/dL Urine Ketones (Negative) Urine Blood (Negative) Urine Nitrite (Negative) Urine Bilirubin (Negative) Urine Urobilinogen (0.2) mg/dL Ur Leukocyte Esterase (Negative) U Hyaline Cast (Auto) (0-2) /LPF Urine Microscopic RBC (0-5) /HPF Urine Microscopic WBC (0-5) /HPF Ur Epithelial Cells (None Seen) /HPF Urine Bacteria (None Seen) /HPF Urine Culture Reflexed (NO) 03/23/24 Range/Units 00:22 WBC (4.0-10.5) x10^3/uL RBC (4.1-5.6) x10^6/uL Hgb (12.5-18.0) g/dL Hct (42-50) % MCV (78-100) fL MCH (26-32) pg MCHC (32-36) g/dL RDW (11.5-14.0) % Plt Count (150-450) x10^3/uL MPV (7.5-11.0) fL Gran % (36.0-66.0) % Immature Gran % (Auto) (0.00-0.4) % Nucleat RBC Rel Count (0.00-0.1) % Eos # (Auto) (0-0.5) x10^3/uL Immature Gran # (Auto) (0.00-0.03) x10^3u/L Absolute Lymphs (auto) (1.0-4.6) x10^3/uL Absolute Monos (auto) (0.0-1.3) x10^3/uL Absolute Nucleated RBC (0.00-0.01) x10^3u/L Lymphocytes % (24.0-44.0) % Monocytes % (0.0-12.0) % Eosinophils % (0.00-5.0) % Basophils % (0.0-0.4) % Absolute Granulocytes (1.4-6.9) x10^3/uL Basophils # (0-0.4) x10^3/uL pO2/FiO2 Ratio % VBG pH (7.32-7.42) VBG pCO2 at Pat Temp (42-55) mm/Hg VBG pO2 at Pat Temp (25-40) mm/Hg VBG HCO3 (22-28) meq/L VBG O2 Sat (Diamond) (95-100) VBG Base Excess (-2.0-2.0) VBG Hemoglobin VBG Carboxyhemoglobin (0.0-6.9) % T HGB POC Potassium (3.5-5.1) Sodium (135-145) mmol/L Potassium (3.5-5.1) mmol/L Chloride (98-107) mmol/L Carbon Dioxide (22-30) mmol/L Anion Gap (5-15) MEQ/L BUN (9-20) mg/dL Creatinine (0.66-1.25) mg/dL Estimated GFR ML/MIN Glucose (74-106) mg/dL POC Glucometer 134 H (74 to 106) mg/dL Calcium (8.4-10.2) mg/dL Magnesium (1.6-2.3) mg/dL Total Bilirubin (0.2-1.3) mg/dL AST (17-59) U/L ALT (0-50) U/L Alkaline Phosphatase (38-126) U/L Troponin I (0.000-0.033) ng/mL Serum Total Protein (6.3-8.2) g/dL Albumin (3.5-5.0) g/dL Amylase (30-110) U/L Lipase (23-300) U/L Urine Color (Yellow) Urine Appearance (Clear) Urine pH (4.6-8.0) Ur Specific [place] (1.005-1.030) Urine Protein (Negative) Urine Glucose (UA) (Negative) mg/dL Urine Ketones (Negative) Urine Blood (Negative) Urine Nitrite (Negative) Urine Bilirubin (Negative) Urine Urobilinogen (0.2) mg/dL Ur Leukocyte Esterase (Negative) U Hyaline Cast (Auto) (0-2) /LPF Urine Microscopic RBC (0-5) /HPF Urine Microscopic WBC (0-5) /HPF Ur Epithelial Cells (None Seen) /HPF Urine Bacteria (None Seen) /HPF Urine Culture Reflexed (NO) Accuchecks Date 03/22/24 Date 03/22/24 Date 03/22/24 Date 03/22/24 Date 03/22/24 Time 23:20 Time 22:17 Time 21:20 Time 20:25 Time 17:41 - Radiology Impressions Radiology Exams & Impressions: Radiology Procedures Category Date Time Status ABDOMEN AND PELVIS W/0 CONTRAS [CT] Stat Exams 03/22/24 17:39 Completed CHEST WITHOUT CONTRAST [CT] Routine Exams 03/23/24 09:00 Ordered - Other Procedures and Tests Respiratory Therapy 03/22/24 22:40 Oxygen Nasal Cannula 2 lpm Assessment/Plan (1) DKA (diabetic ketoacidosis) Current Visit: Yes Status: Acute Assessment & Plan: DRIPS Insulin ASSESSMENT 1. Diabetic Ketoacidosis 2. Leukocytosis 3. Acute vs. Acute on Chronic vs. Chronic Kidney Disease 4. Lung Nodules 5. Gastroparesis 6. Type I Diabetes Mellitus 7. Hypertension 8. Benign Prostatic Hypertrophy 9. Coronary Artery Disease 10. Chronic Obstructive Pulmonary Disease PLAN 1. DKA protocol: Insulin gtt + NS (when CBG > 250) + D5NS (when CBG < 250); q1hr blood sugar check 2. q4hr BMP - replete as necessary 3. NPO until gap closes 4. When gap closed - one dose of long acting SQ insulin --> diet to start in 30 minutes --> insulin gtt off in 3 hours + q4hr CBG + ISS for next 24 hrs 5. AM Lipids and A1c 6. Continue home antihypertensive regimen; continue home pain medications; NPO otherwise 7. CT chest in AM - apparently had "clean" CT done last week; would like to have a comparison CT given [facility] Time: 60 Minutes The entirety of this encounter was done via telemedicine with audio and visual. Consent was given for a telemedicine encounter. Serafin Nichols MD Pulmonary and Critical Care Medicine Code(s): E11.10 - TYPE 2 DIABETES MELLITUS WITH KETOACIDOSIS WITHOUT COMA Telemedicine Encounter - Telemedicine Encounter Telemedicine Encounter: The entirety of this encounter was performed via Telemedicine"
[2024-03-23 01:05] LABS: ANION GAP 18.9 MEQ/L (5-15); Calcium 8.7 mg/dL (8.4-10.2); Creatinine 1 0.7 mg/dL (0.66-1.25); EST GLOMERULAR FILTRATION RATE 106.8 ML/MIN
[2024-03-23] MEDS ORDERED: Flomax 0.4 MG ONE ×2 (01:29→01:54)
[2024-03-23] MEDS: OXYCODONE-ACETAMINOPHEN 10-325 PO ONE (01:34)
[2024-03-23] MEDS: LYRICA 100MG PO SCH (01:36)
[2024-03-23] MEDS: Flomax 0.4 MG PO SCH (01:56)
[2024-03-23] MEDS ORDERED: MAGNESIUM SULF 2 G/50 ML BAG 2 GM/50 ML PIGGYBACK IV PRN (02:00)
[2024-03-23] MEDS ORDERED: POTASSIUM CHLORIDE 20 mEq IN WATER 100ML 20 MEQ/100 ML BAG IV PRN (02:05)
[2024-03-23] MEDS: Sodium Chloride 0.9% 1000 ML 1,000 ML IV SCH (02:19)
[2024-03-23 04:50] LABS: ALBUMIN 3.2 g/dL (3.5-5.0); ANION GAP 13.1 MEQ/L (5-15); BILIRUBIN,TOTAL 0.8 mg/dL (0.2-1.3); Creatinine 1 0.68 mg/dL (0.66-1.25); EST GLOMERULAR FILTRATION RATE 107.7 ML/MIN; Potassium 3.2 mmol/L (3.5-5.1); Total Protein 6.3 g/dL (6.3-8.2)
[2024-03-23] MEDS: K-LYTE PO PRN (05:44)
[2024-03-23] MEDS: POTASSIUM CHLORIDE 20 mEq IN WATER 100ML 20 MEQ/100 ML BAG IV PRN (05:45)
[2024-03-23] MEDS: Reglan 10 MG/2 ML IV SCH (05:46)
[2024-03-23] MEDS ORDERED: K-LYTE PO PRN (07:39)
[2024-03-23 08:21] LABS: Hematocrit 39.5 % (42-50); Hemoglobin 14.1 g/dL (12.5-18.0); Mean Cell Volume 85.3 fL (78-100); Mean Corpuscular Hemoglobin 30.5 pg (26-32); Mean Corpuscular Hgb Concent. 35.7 g/dL (32-36); Mean Platelet Volume 10.2 fL (7.5-11.0); Platelet Count 207 x10^3/uL (150-450); Red Blood Count 4.63 x10^6/uL (4.1-5.6); Red Cell Distribution Width 12.4 % (11.5-14.0)
[2024-03-23 08:34] LABS: ALBUMIN 3.3 g/dL (3.5-5.0); ANION GAP 15.6 MEQ/L (5-15); BILIRUBIN,TOTAL 0.8 mg/dL (0.2-1.3); Creatinine 1 0.65 mg/dL (0.66-1.25); EST GLOMERULAR FILTRATION RATE 109.2 ML/MIN; PHOSPHOROUS 2.6 mg/dL (2.5-4.5); Total Protein 6.3 g/dL (6.3-8.2)
[2024-03-23] MEDS: Magnesium 1 Gm / 100 Ml D5W*** 100 ML IV ONE (08:36)
[2024-03-23] MEDS: Lantus Insulin SQ SCH (08:36)
[2024-03-23 08:51] LABS: Potassium 4.3 mmol/L (3.5-5.1)
[2024-03-23] MEDS: OXYCODONE-ACETAMINOPHEN 10-325 PO SCH (09:21)
[2024-03-23] MEDS: Cozaar 50 MG PO SCH (09:21)
[2024-03-23] MEDS: BUSPAR 5 MG PO SCH (09:22)
[2024-03-23] MEDS: Tums EX 750 MG PO SCH (09:23)
[2024-03-23] MEDS: ENOXAPARIN SODIUM SQ SCH (09:24)
[2024-03-23] MEDS: Toprol Xl 50 MG PO SCH (09:47)
[2024-03-23] MEDS ORDERED: Toprol Xl 50 MG PO SCH (10:00)
[2024-03-23] MEDS: Protonix 20MG Tablet PO SCH (11:29)
[2024-03-23] MEDS: hydroDIURIL 25 MG PO SCH (11:29)
[2024-03-23] MEDS: ECOTRIN 81 MG PO SCH (11:29)
[2024-03-23] MEDS: DEMADEX 20 MG PO SCH (11:29)
[2024-03-23] MEDS: HUMALOG SQ SCH (11:31)
[2024-03-23] MEDS: HUMALOG SQ PRN (11:31)
[2024-03-23] MEDS ORDERED: VENTOLIN COMMON CANISTER IH PRN (11:56)
[2024-03-23 12:41] LABS: ANION GAP 10.3 MEQ/L (5-15); Calcium 7.9 mg/dL (8.4-10.2); Creatinine 1 0.56 mg/dL (0.66-1.25); EST GLOMERULAR FILTRATION RATE 114.3 ML/MIN; Potassium 3.6 mmol/L (3.5-5.1)
[2024-03-23] MEDS: Sodium Chloride 0.9% 500 ML 500 ML IV ONE (14:27)
[2024-03-23] MEDS ORDERED: LYRICA 100MG PO SCH (15:00)
[2024-03-23] MEDS: CLARITIN 10 MG PO SCH (15:10)
[2024-03-23] MEDS: ROCEPHIN 1 GM / 100 ML NaCl 1 GM/100 ML IVPB IV SCH (16:37)
[2024-03-23] MEDS: Glucophage XR 500 MG PO SCH (16:37)
[2024-03-23 16:58] LABS: ANION GAP 8.8 MEQ/L (5-15); Calcium 7.8 mg/dL (8.4-10.2); Creatinine 1 0.64 mg/dL (0.66-1.25); EST GLOMERULAR FILTRATION RATE 109.7 ML/MIN; Potassium 3.5 mmol/L (3.5-5.1)
[2024-03-23 20:59] LABS: ANION GAP 10.2 MEQ/L (5-15); Calcium 8.1 mg/dL (8.4-10.2); Creatinine 1 0.63 mg/dL (0.66-1.25); EST GLOMERULAR FILTRATION RATE 110.3 ML/MIN; Potassium 3.7 mmol/L (3.5-5.1)
[2024-03-23] MEDS: Zetia 10 MG PO SCH (21:47)
[2024-03-24 05:44] LABS: Calcium 8.1 mg/dL (8.4-10.2); Creatinine 1 0.49 mg/dL (0.66-1.25); Potassium 3.2 mmol/L (3.5-5.1)
[2024-03-24 07:56] LABS: Hematocrit 35.8 % (42-50); Hemoglobin 12.7 g/dL (12.5-18.0); Mean Cell Volume 85.6 fL (78-100); Mean Corpuscular Hemoglobin 30.4 pg (26-32); Mean Corpuscular Hgb Concent. 35.5 g/dL (32-36); Mean Platelet Volume 11.2 fL (7.5-11.0); Platelet Count 184 x10^3/uL (150-450); Red Blood Count 4.18 x10^6/uL (4.1-5.6); Red Cell Distribution Width 12.3 % (11.5-14.0); White Blood Count 10.1 x10^3/uL (4.0-10.5)
[2024-03-24] MEDS: Spiriva 18 Mcg/Cap Inhaler IH SCH (08:02)
[2024-03-24] MEDS: Klor Con PO SCH (08:02)
[2024-03-24 08:08] VITALS: RESP 16
[2024-03-24 08:49] LABS: ANION GAP 8.5 MEQ/L (5-15); Calcium 8.2 mg/dL (8.4-10.2); Creatinine 1 0.48 mg/dL (0.66-1.25); EST GLOMERULAR FILTRATION RATE 119.7 ML/MIN; Potassium 3.4 mmol/L (3.5-5.1)
--- NOTE | 2024-03-24 09:04 | XRAY ---
CLINICAL HISTORY: abnormal finding on CT COMPARISON: CT dated 03/23/2024. TECHNIQUE: Contiguous axial CT images of the chest were acquired with the administration of intravenous contrast. Coronal and sagittal reconstructions were also obtaoned. One of the following dose reduction techniques were utilized for this exam: Automated exposure control, adjustment of the mA and/or kV according to patient size, use of iterative reconstruction. FINDINGS: Redemonstration of the right lower lung lobe irregular confluent nodules with spiculated margins, largest measures about 32x27 mm, surrounded by ground glass densities and tiny nodules. They show mild nodular/ heterogenous mainly peripheral enhancement is identified. Multiple tiny 4-7 mm nodules are redemonstrated in the left lower lobe. Few enlarged and prominent pretracheal, subcarinal mediastinal, and right hilar lymph nodes redemonstrated, largest measuring 1.4cm. No free or encysted pleural effusion. Heart size is normal, and there is no pericardial effusion. Mildly elevated dome of left hemidiaphragm. There is no definite mass lesion in the chest wall. Small haital hernia is redemonstrated. Bilateral perinephric fat stranding is seen. Status post cholecystectomy. The rest of the scanned upper abdomen is unremarkable. Mild thoracic spondylosis, reduced ventral height of T12 vertebra. IMPRESSION: Redemonstration of the right lower lung lobe irregular confluent nodules with morphologic and enhancement criteria, suggesting neoplastic etiology surrounded by ground glass of likely lymphtic permeation. Biopsy is recommneded. Small mediastinal and right hilar lymph nodes. Multiple tiny 4-7 mm nodules are redemonstrated in the left lower lobe. [facility] ER was called at [phone] at 08:57 AM UTILITY BILL COLLECTOR, 03/24/2024 and results were verbally communicated to Dr Odalys Valenzuela's Nurse Electronically Signed by: Gracie Thomas MD. (03/24/2024 09:00:47 EDT)
[2024-03-24] MEDS: ROCEPHIN 1 GM / 100 ML NaCl 1 GM/100 ML IVPB IV SCH (09:29)
[2024-03-24] MEDS ORDERED: HOLD METFORMIN PRODUCTS FOR 48 HOURS MC SCH (09:30)
--- NOTE | 2024-03-24 09:32 | PCM.DS ---
Discharge Summary Date of Admission: 03/22/24 21:59 Date of Discharge: 03/24/24 Admitting Physician: SERGE SIDDIQUI MD Primary Care Provider: NO FAMILY DOCTOR Allergies Allergies No Known Drug Allergies Allergy (Verified 03/22/24 17:39) Hospital Summary - Hospital Course Hospital Course: Mr. Richardson is a 58 year-old gentleman with PMHX of HTN, DM1, BPH, CAD, and COPD. He presented with DKA on 03/23/24. He admits to abdominal pain, nausea, and vomiting that suddenly developed after administering a double dose of Trulicity as recommended by his PCP. Upon arrival to [place], laboratory data revealed a leukocytosis, DKA and a Cr of 1.[address] A/P revealed gastroparesis. CT abd completed and showed some abnormal lung findings. Admitting MD ordered CT without contrast and this was recommended for f/u with CT with contrast. Report reviewed and will have pt f/u with pulmonology for OP f/u of lung nodules as it appears biopsy is needed for further evaluation. Pt reports his follows Dr. Harrison and he would like to see him in the [facility]. Will continue OP antibiotics. Pt denies CP, SOB, Abd. pain, N/V/D. He reports feeling much better today overall and would like to go home. Glucose well controlled. Explained he will need to f/u OP with PCP this week for f/u care and discuss insulin regimen. Will d/c with antibiotics for pneumonia. - Vitals & Intake/Output Vital Signs: Vital Signs Temperature 97.6 F 03/24/24 07:45 Pulse Rate 94 H 03/24/24 08:34 Respiratory Rate 16 03/24/24 08:06 Blood Pressure 135/71 03/24/24 07:45 O2 Sat by Pulse Oximetry 96 03/24/24 08:06 Intake & Output: Intake & Output 03/21/24 03/22/24 03/23/24 03/24/24 11:59 11:59 11:59 11:59 Intake Total 1467 4188 Output Total 1020 2000 Balance 447 2188 Weight 86.1 kg - Lab Result Diagrams: 03/24/24 05:20 03/24/24 08:30 Lab Results-Last 24 Hrs: Lab Results-Last 24 Hours 03/23/24 03/23/2424 Range/Units 10:04 11:20 12:30 WBC (4.0-10.5) x10^3/uL RBC (4.1-5.6) x10^6/uL Hgb (12.5-18.0) g/dL Hct (42-50) % MCV (78-100) fL MCH (26-32) pg MCHC (32-36) g/dL RDW (11.5-14.0) % Plt Count (150-450) x10^3/uL MPV (7.5-11.0) fL Sodium 134 L (135-145) mmol/L Potassium 3.6 (3.5-5.1) mmol/L Chloride 105 (98-107) mmol/L Carbon Dioxide 23 (22-30) mmol/L Anion Gap 10.3 (5-15) MEQ/L BUN 12 (9-20) mg/dL Creatinine 0.56 L (0.66-1.25) mg/dL Estimated GFR 114.3 ML/MIN Glucose 230 H (74-106) mg/dL POC Glucometer 295 H 272 H (74 to 106) mg/dL Hemoglobin A1c (4.5-6.0) % Calcium 7.9 L (8.4-10.2) mg/dL Magnesium (1.6-2.3) mg/dL 03/23/24 03/23/24 03/23/24 Range/Units 16:23 16:40 20:42 WBC (4.0-10.5) x10^3/uL RBC (4.1-5.6) x10^6/uL Hgb (12.5-18.0) g/dL Hct (42-50) % MCV (78-100) fL MCH (26-32) pg MCHC (32-36) g/dL RDW (11.5-14.0) % Plt Count (150-450) x10^3/uL MPV (7.5-11.0) fL Sodium 137 137 (135-145) mmol/L Potassium 3.5 3.7 (3.5-5.1) mmol/L Chloride 106 106 (98-107) mmol/L Carbon Dioxide 26 25 (22-30) mmol/L Anion Gap 8.8 10.2 (5-15) MEQ/L BUN 13 13 (9-20) mg/dL Creatinine 0.64 L 0.63 L (0.66-1.25) mg/dL Estimated GFR 109.7 110.3 ML/MIN Glucose 172 H 217 H (74-106) mg/dL POC Glucometer 182 H (74 to 106) mg/dL Hemoglobin A1c (4.5-6.0) % Calcium 7.8 L 8.1 L (8.4-10.2) mg/dL Magnesium (1.6-2.3) mg/dL 03/23/24 03/24/24 03/24/24 Range/Units 21:07 00:22 05:20 WBC (4.0-10.5) x10^3/uL RBC (4.1-5.6) x10^6/uL Hgb (12.5-18.0) g/dL Hct (42-50) % MCV (78-100) fL MCH (26-32) pg MCHC (32-36) g/dL RDW (11.5-14.0) % Plt Count (150-450) x10^3/uL MPV (7.5-11.0) fL Sodium 137 (135-145) mmol/L Potassium 3.2 L (3.5-5.1) mmol/L Chloride 105 (98-107) mmol/L Carbon Dioxide 27 (22-30) mmol/L Anion Gap 8.0 (5-15) MEQ/L BUN 9 (9-20) mg/dL Creatinine 0.49 L (0.66-1.25) mg/dL Estimated GFR 119.0 ML/MIN Glucose 128 H (74-106) mg/dL POC Glucometer 204 H 144 H (74 to 106) mg/dL Hemoglobin A1c (4.5-6.0) % Calcium 8.1 L (8.4-10.2) mg/dL Magnesium (1.6-2.3) mg/dL 03/24/24 03/24/24 03/24/24 Range/Units 05:20 05:20 05:20 WBC 10.1 (4.0-10.5) x10^3/uL RBC 4.18 (4.1-5.6) x10^6/uL Hgb 12.7 (12.5-18.0) g/dL Hct 35.8 L (42-50) % MCV 85.6 (78-100) fL MCH 30.4 (26-32) pg MCHC 35.5 (32-36) g/dL RDW 12.3 (11.5-14.0) % Plt Count 184 (150-450) x10^3/uL MPV 11.2 H (7.5-11.0) fL Sodium (135-145) mmol/L Potassium (3.5-5.1) mmol/L Chloride (98-107) mmol/L Carbon Dioxide (22-30) mmol/L Anion Gap (5-15) MEQ/L BUN (9-20) mg/dL Creatinine (0.66-1.25) mg/dL Estimated GFR ML/MIN Glucose (74-106) mg/dL POC Glucometer (74 to 106) mg/dL Hemoglobin A1c 9.94 H (4.5-6.0) % Calcium (8.4-10.2) mg/dL Magnesium 1.7 (1.6-2.3) mg/dL 03/24/24 03/24/24 Range/Units 07:31 08:30 WBC (4.0-10.5) x10^3/uL RBC (4.1-5.6) x10^6/uL Hgb (12.5-18.0) g/dL Hct (42-50) % MCV (78-100) fL MCH (26-32) pg MCHC (32-36) g/dL RDW (11.5-14.0) % Plt Count (150-450) x10^3/uL MPV (7.5-11.0) fL Sodium 136 (135-145) mmol/L Potassium 3.4 L (3.5-5.1) mmol/L Chloride 104 (98-107) mmol/L Carbon Dioxide 27 (22-30) mmol/L Anion Gap 8.5 (5-15) MEQ/L BUN 8 L (9-20) mg/dL Creatinine 0.48 L (0.66-1.25) mg/dL Estimated GFR 119.7 ML/MIN Glucose 151 H (74-106) mg/dL POC Glucometer 124 H (74 to 106) mg/dL Hemoglobin A1c (4.5-6.0) % Calcium 8.2 L (8.4-10.2) mg/dL Magnesium (1.6-2.3) mg/dL Micro Results-Entire Visit: Accuchecks Date 03/24/24 Date 03/24/24 Date 03/23/24 Date 03/23/24 Date 03/23/24 Date 03/23/24 Time 07:47 Time 00:27 Time 21:00 Time 10:00 - Radiology Exams Ordered Rad Exams-Entire Visit: Radiology Procedures Category Date Time Status ABDOMEN AND PELVIS W/0 CONTRAS [CT] Stat Exams 03/22/24 17:39 Completed CHEST WITH CONTRAST [CT] Routine Exams 03/24/24 07:19 Completed CHEST WITHOUT CONTRAST [CT] Routine Exams 03/23/24 09:00 Taken - Procedures and Test Procedures and Tests throughout Hospitalization: Therapy Orders & Screens 03/22/24 22:40 Oxygen Nasal Cannula 2 lpm Comment: Diagnosis: DKA 03/23/24 11:57 Respiratory Therapy Assessment DAILY Comment: Diagnosis: DKA Discharge Exam General Appearance: no apparent distress, alert Neurologic Exam: alert, oriented x 3, cooperative, normal mood/affect, nml cerebellar function, sensation nml, No motor deficits Eye Exam: PERRL, EOMI, eyes nml inspection Ears, Nose, Throat Exam: normal ENT inspection, pharynx normal, moist mucous membranes Neck Exam: normal inspection, non-tender, supple, full range of motion Respiratory Exam: normal breath sounds, lungs clear, No respiratory distress Cardiovascular Exam: regular rate/rhythm, normal heart sounds Gastrointestinal/Abdomen Exam: soft, No tenderness, No mass Male Genitalia Exam: deferred Rectal Exam: deferred Back Exam: normal inspection, normal range of motion, No CVA tenderness, No vertebral tenderness Extremity Exam: normal inspection, normal range of motion Skin Exam: normal color, warm, dry Final Diagnosis/Problem List - Final Discharge Diagnosis/Problem (1) DKA (diabetic ketoacidosis) Current Visit: Yes Status: Resolved Assessment & Plan: - resolved - insulin gtt stopped yesterday - gap closed - eating well w/o concerns - will need to discuss OP insulin regimen with PCP this week. Code(s): E11.10 - TYPE 2 DIABETES MELLITUS WITH KETOACIDOSIS WITHOUT COMA (2) Pneumonia Current Visit: Yes Status: Acute Assessment & Plan: - ground glass opacities RLL seen on CT - WBC 20.0 on admission, today 10.1 - RA 96% - Continue Op antibotics Code(s): J18.9 - PNEUMONIA, UNSPECIFIED ORGANISM (3) Lung nodules Current Visit: Yes Status: Acute Assessment & Plan: - CT with chest w/o then CT with IV contrast per radiology recs IMPRESSION: Redemonstration of the right lower lung lobe irregular confluent nodules with morphologic and enhancement criteria, suggesting neoplastic etiology surrounded by ground glass of likely lymphtic permeation. Biopsy is recommneded. Small mediastinal and right hilar lymph nodes. Multiple tiny 4-7 mm nodules are redemonstrated in the left lower lobe. - Pt to f/u OP with Dr. Harrison- Pulmonology - RA96% - denies SOB (4) Abdominal pain Current Visit: Yes Status: Resolved Assessment & Plan: - Abd pain resolved when DKA resolved 1. Incompletely visualized right lower lobe masslike opacities concerning for - CT Abd/ pelvis malignancy. A few subcentimeter left lower lobe noncalcified nodularities. Dedicated CT chest may yield further information. 2. Moderately fluid distended stomach with prominent rugal folds either from recent ingestion versus gastritis versus gastroparesis. Negative for distal small bowel obstruction. 3. Chronic findings including fatty liver, arteriosclerotic disease, and chronic bony findings. Code(s): R10.9 - UNSPECIFIED ABDOMINAL PAIN (5) Leukocytosis Current Visit: Yes Status: Resolved Assessment & Plan: - 2:2 pneumonia,and DKA Code(s): D72.829 - ELEVATED WHITE BLOOD CELL COUNT, UNSPECIFIED - Discharge Discharge Date: 03/24/24 Disposition: Home, Self-Care Condition: Stable Prescriptions: Continue Insulin Glargine [Lantus Insulin] 58 units SQ HS Metformin HCl Xr 500 mg [Glucophage XR 500 MG] 1,000 mg PO BID hydroCHLOROthiazide [Hydrochlorothiazide] 25 mg PO DAILY Losartan Potassium 50 mg [Cozaar 50 MG] 50 mg PO DAILY Metoprolol Succinate 50 mg [Toprol Xl 50 MG] 50 mg PO BID Tamsulosin HCl 0.4 mg [Flomax 0.4 MG] 0.8 mg PO HS Cetirizine HCl [Zyrtec] 50 mg PO DAILY Pregabalin [Lyrica 100Mg] 200 mg PO TID Empagliflozin [Jardiance] 10 mg PO DAILY Oxycodone HCl/Acetaminophen [Percocet 10-325 mg Tablet] 10 - 325 mg PO TID Esomeprazole Magnesium [Nexium 24Hr] 20 mg PO DAILY Torsemide 10 mg PO DAILY Tiotropium Bazine [Spiriva Handihaler] 18 mcg PO DAILY Ezetimibe 10 mg [Zetia 10 MG] 10 mg PO HS Buspirone HCl 5 mg [Buspar 5 mg] 10 mg PO DAILY Dulaglutide [Trulicity] 3 mg SQ WEEKLY Aspirin 81 gm Chew [Baby Aspirin 81 mg Chew] 81 mg PO DAILY Insulin Lispro [Humalog] 21 units SQ TIDWMEALS Insulin Lispro [Humalog] 0 units SQ UD PRN PRN Reason: glucose Instructions: Diabetic Ketoacidosis (DC) Additional Instructions: * Continue previous dose of Trulicity- discuss with PCP side effects of higher dosing. - Follow up with Pulmonology Follow up with: LAYO HARRISON [ACTIVE STAFF] - DOCTOR,NO FAMILY [Primary Care Provider] - Forms: Discharge Instructions
[2024-03-24] MEDS ORDERED: ZITHROMAX IV*** 0 MG in Sodium Chloride 0.9% 250 ML 250 ML IV SCH (10:00)
[2024-03-24] MEDS ORDERED: ESOMEPRAZOLE MAGNESIUM 20 MG PO SCH (10:00)
[2024-03-24] MEDS ORDERED: NON-FORMULARY ITEM (Cetirizine Hcl [Zyrtec] 10 MG Capsule) PO SCH (10:00)
[2024-03-24] MEDS ORDERED: BABY ASPIRIN 81 MG CHEW PO SCH (10:00)
[2024-03-24] MEDS ORDERED: NON-FORMULARY ITEM (Torsemide [Torsemide] 10 MG Tablet) PO SCH (10:00)
[2024-03-24] MEDS: Zithromax 500 MG/ 250 ML NaCl Premix 500 MG/250 ML IVPB IV SCH (10:25)
[2024-03-24 11:32] VITALS: BP 118/65; PULSE 93; TEMP 97.8; O2SAT 94
--- NOTE | 2024-03-25 09:08 | XRAY ---
CLINICAL HISTORY: lung nodules COMPARISON: None. TECHNIQUE: Contiguous axial CT images of the chest were acquired without the administration of intravenous contrast. Coronal and sagittal reconstructions were alsoOne of the following dose reduction techniques was utilized for this exam: Automated exposure control, adjustment of the mA and/or kV according to patient size, and use of iterative reconstruction. obtained. FINDINGS: The right lower lung lobe shows irregular patchy confluent consolidations surrounded by ground glass veiling likely pneumonic. Multiple tiny 4-5mm nodules are seen in the left lower lobe. Few enlarged and prominent mediastinal lymph nodes are seen, one measuring 1.4cm. No free or encysted pleural effusion. Heart size is normal, and there is no pericardial effusion. Mildly elevated dome of left hemidiaphragm. There is no definite mass lesion in the chest wall. Small haital hernia seen. Bilateral perinephric fat stranding seen. The rest of scanned upper abdomen is unremarkable. Mild thoracic spondylosis. IMPRESSION: Right lower lung lobe confluent consolidation surrounded by ground glass veiling and left lower lung lobe small nodules. Findings are likely due to pulmonary infection, would recommend follow-up with contrast study to exclude the possibility of Vascular etiology/neoplastic disease process. [facility] ER was called at [phone] at 10:31 PM EST, 03/23/2024 and results were verbally communicated to Nurse Hao. Electronically Signed by: Gracie Thomas MD. (03/23/2024 10:35:44 EDT)
== END 2024-03-24 13:45 | disposition home or self-care (01) ==
LOC: ED 17:27 → ICU 21:59
PROVIDERS: ADMIT Internal Medicine Critical Care Medicine; ATTEND Internal Medicine Critical Care Medicine
DX: E11.10 Type 2 diabetes mellitus with ketoacidosis without coma (principal); J18.9 Pneumonia, unspecified organism; R91.1 Solitary pulmonary nodule; R10.9 Unspecified abdominal pain; D72.829 Elevated white blood cell count, unspecified; N40.0 Benign prostatic hyperplasia without lower urinary tract symptoms; I25.10 Atherosclerotic heart disease of native coronary artery without angina pectoris; J44.9 Chronic obstructive pulmonary disease, unspecified; Z79.899 Other long term (current) drug therapy
CPT/HCPCS: 36000; 36415; 71250; 71260; 74176; 80048; 80053; 80061; 81001; 82150; 82805; 82947; 83036; 83690; 83721; 83735; 84100; 84443; 84484; 85025; 85027; 93005; 93268; 94640; 96374; 96375; 99285; G0378; Q3014; J0456; J0696; J1170; J1817; J2405; J3010; J3475; J3480; A9270-GY

== ENCOUNTER 2024-08-26 13:46 | Emergency (ER) | payer MEDICARE ==
[2024-08-26 13:55] VITALS: TEMP 98
--- NOTE | 2024-08-26 14:19 | ERPHSYRPT ---
- History of Present Illness Time Seen by Provider: 08/26/24 14:19 Historian: patient Patient Subjective Stated Complaint: chest pain Triage Nursing Assessment: patient sttaes that he started having a pain in his left lower leg behind the knee. he states that over night the pain traveled up to his chest and left arm. patient reports SOB. hx of chf, cad, 30 year smoker. quit smoking 14 years ago Physician History: 59 years old male with past medical history of type 2 diabetes, congestive heart failure, coronary artery disease. The patient is presenting to the emergency room with chief complaint of shortness of breath and left-sided chest pain that is pleuritic in nature worse when he takes deep breaths and/or coughs. The patient states that yesterday evening he felt like a lump in his left lower leg that moved upward and ended up in his left chest. He has no history of DVTs or PEs. He is not on any blood thinners except for aspirin. The patient states that he has a history of coronary artery disease but he never had stents placed in the past?. At present he is denying any headache, no dizziness no blurred or double vision. His Accu-Chek in our emergency room is elevated at 590. The patient takes Humalog Lantus Jardiance and metformin. At present he is denying any chest pain he is not on oxygen and is saturating 96%. He quit smoking 14 years ago. Aspirin Treatment Today: 325 mg x 1 Allergies/Adverse Reactions: No Known Drug Allergies Allergy (Verified 08/26/24 13:55) Home Medications: Insulin Glargine [Lantus Insulin] 60 units SQ HS 03/20/22 [History] Losartan Potassium 50 mg [Cozaar 50 MG] 50 mg PO DAILY 03/20/22 [History] Metformin HCl Xr 500 mg [Glucophage XR 500 MG] 1,000 mg PO BID 03/20/22 [History] Metoprolol Succinate 50 mg [Toprol Xl 50 MG] 50 mg PO BID 03/20/22 [History] Tamsulosin HCl 0.4 mg [Flomax 0.4 MG] 0.8 mg PO HS 03/20/22 [History] hydroCHLOROthiazide [Hydrochlorothiazide] 25 mg PO DAILY 03/20/22 [History] Buspirone HCl 5 mg [Buspar 5 mg] 10 mg PO DAILY 03/22/24 [History] Empagliflozin [Jardiance] 10 mg PO DAILY 03/22/24 [History] Esomeprazole Magnesium [Nexium 24Hr] 20 mg PO DAILY 03/22/24 [History] Ezetimibe 10 mg [Zetia 10 MG] 10 mg PO HS 03/22/24 [History] Oxycodone HCl/Acetaminophen [Percocet 10-325 mg Tablet] 10 - 325 mg PO TID 03/22/24 [History] Pregabalin [Lyrica 100Mg] 200 mg PO TID 03/22/24 [History] Tiotropium Ottertail [Spiriva Handihaler] 18 mcg PO DAILY 03/22/24 [History] Torsemide 10 mg PO DAILY 03/22/24 [History] Aspirin 81 gm Chew [Baby Aspirin 81 mg Chew] 81 mg PO DAILY 03/23/24 [History] Insulin Lispro [Humalog] 0 units SQ UD PRN 03/23/24 [History] Insulin Lispro [Humalog] 21 units SQ TIDWMEALS 03/23/24 [History] Hx Tetanus, Diphtheria Vaccination/Date Given: Yes Hx Influenza Vaccination/Date Given: Yes Hx Pneumococcal Vaccination/Date Given: Yes Travel Risk - International Travel Have you traveled outside of the country in past 3 weeks: No - Emerging Infectious Disease Are you exhibiting symptoms associated with any current EIDs: No Symptoms: Abdominal Pain, Vomitting, Other (Please Comment) (Patient's symptoms are likely not infectious but medication related) - Review of Systems Constitutional: No Symptoms Respiratory: Dyspnea Cardiac: Chest Pain All Other Systems: Reviewed and Negative - Past Medical History Pertinent Past Medical History: Yes Neurological History: Peripheral Neuropathy, Stroke ENT History: No Pertinent History Cardiac History: Congestive Heart Failure Respiratory History: Asthma, CHF, COPD Endocrine Medical History: Diabetes Type II, Liver Disease Musculoskeletal History: Arthritis GI Medical History: Gallbladder Disease History: No Pertinent History Psycho-Social History: Anxiety, Depression Male Reproductive Disorders: No Pertinent History Other Medical History: fatty liver - Past Surgical History Past Surgical History: Yes Neuro Surgical History: No Pertinent History Cardiac: Cardiac Catheterization Respiratory: No Pertinent History Gastrointestinal: Cholecystectomy Genitourinary: No Pertinent History Musculoskeletal: No Pertinent History Male Surgical History: No Pertinent History - Social History Smoking Status: Former smoker Exposure to second hand smoke: No Drug Use: none Patient Lives Alone: No - Social Determinants of Health Will the patient participate in the screening: Yes Do you worry about a steady place to live?: No In the past 12 months,have you had to go without utilities?: No Transportation Issues: No Has anyone in your support network made you feel unsafe?: No Have you or anyone in your house had to go without enough: No - Nursing Vital Signs Nursing Vital Signs: Initial Vital Signs Temperature 98 F 08/26/24 13:48 Pulse Rate 116 H 08/26/24 13:48 Respiratory Rate 20 08/26/24 13:48 Blood Pressure 135/83 08/26/24 13:48 O2 Sat by Pulse Oximetry 96 08/26/24 13:48 Pain Scale Pain Intensity 8 - Physical Exam General Appearance: no apparent distress Eye Exam: PERRL/EOMI, eyes nml inspection Ears, Nose, Throat Exam: normal ENT inspection, TMs normal, moist mucous membranes Neck Exam: normal inspection, non-tender, supple, full range of motion Respiratory Exam: normal breath sounds, chest tenderness, lungs clear, airway intact Cardiovascular Exam: normal heart sounds, normal peripheral pulses, tachycardia, capillary refill <2 sec Gastrointestinal/Abdomen Exam: soft, normal bowel sounds Rectal Exam: deferred Back Exam: normal inspection, normal range of motion Extremity Exam: normal inspection, normal range of motion, pelvis stable Neurologic Exam: alert, oriented x 3, cooperative, tariff counsel II-XII nml as tested, normal mood/affect Skin Exam: normal color, warm SpO2: 96 - Course EKG Interpreted by Me: RATE, Sinus Tach, Other ([address] depressions in the lateral leads V4, V5, V6. Q waves in the inferior leads III. Prolonged QT interval, QT 343, QTc 483.) Ordered Tests: Active Orders 24 hr Category Date Time Status IV Insertion STAT Care 08/26/24 14:10 Active Oxygen-ED Only Nasal Cannula 2 lpm Care 08/26/24 17:00 Active POCT Glucose Check STAT Care 08/26/24 15:55 Active CHEST 1 VIEW (PORTABLE) Stat Exams 08/26/24 14:10 Completed CHEST WITH CONTRAST [CT] Stat Exams 08/26/24 14:29 Completed ARTERIAL BLOOD GASES Stat Lab 08/26/24 14:15 Completed BLOOD CULTURE Stat Lab 08/26/24 14:40 Received CBC W DIFF Stat Lab 08/26/24 Completed CMP Stat Lab 08/26/24 14:35 Completed D-DIMER QUANTITATIVE Stat Lab 08/26/24 14:35 Completed NT PRO BNPII Stat Lab 08/26/24 14:35 Completed POCT GLUCOSE Stat Lab 08/26/24 15:57 Completed POCT GLUCOSE Stat Lab 08/26/24 17:07 Completed PROTIME WITH INR Stat Lab 08/26/24 14:35 Completed TROPONIN Q4H Lab 08/26/24 14:35 Completed TROPONIN Q4H Lab 08/26/24 17:40 Completed TROPONIN Q4H Lab 08/26/24 22:15 Ordered Medication Summary Discontinued Medications Generic Name Dose Route Start Last Admin Trade Name Freq PRN Reason Stop Dose Admin Aspirin 324 mg 08/26/24 14:10 08/26/24 14:25 Aspirin 81 Mg Tab.Chew PO 08/26/24 14:11 162 mg STAT ONE Administration Aspirin Confirm 08/26/24 14:24 Aspirin 81 Mg Tab.Chew Administered 08/26/24 14:25 Dose 162 mg .ROUTE .STK-MED ONE Hydromorphone HCl 1 mg 08/26/24 15:59 08/26/24 16:02 Hydromorphone 1 Mg/1ml Inj IV 08/26/24 16:00 1 mg STAT ONE Administration Hydromorphone HCl Confirm 08/26/24 16:01 Hydromorphone 1 Mg/1ml Inj Administered 08/26/24 16:02 Dose 1 mg .ROUTE .STK-MED ONE Hydromorphone HCl Confirm 08/26/24 19:19 Hydromorphone 1 Mg/1ml Inj Administered 08/26/24 19:20 Dose 1 mg .ROUTE .STK-MED ONE Hydromorphone HCl 1 mg 08/26/24 19:21 Hydromorphone 1 Mg/1ml Inj IV 08/26/24 19:22 STAT ONE Sodium Chloride 1,000 mls @ 999 mls/hr 08/26/24 15:34 08/26/24 16:40 Sodium Chloride 0.9% 1000 Ml IV 08/26/24 16:34 Infused .Q1H1M STA Infusion Insulin Human Regular 10 unit 08/26/24 15:23 08/26/24 15:27 Insulin Regular, Human 1 Unit IV 08/26/24 15:24 10 unit STAT ONE Administration Insulin Human Regular Confirm 08/26/24 15:27 Insulin Regular, Human 1 Unit Administered 08/26/24 15:28 Dose 10 unit .ROUTE .STK-MED ONE Morphine Sulfate Confirm 08/26/24 14:50 Morphine Sulfate 4 Mg/Ml Injection Administered 08/26/24 14:51 Dose 4 mg .ROUTE .STK-MED ONE Morphine Sulfate 4 mg 08/26/24 14:53 08/26/24 14:54 Morphine Sulfate 4 Mg/Ml Injection IV 08/26/24 14:54 4 mg STAT ONE Administration Nitroglycerin 0.4 mg 08/26/24 14:23 08/26/24 14:25 Nitroglycerin 0.4 Mg Tablet Bottle SL 08/26/24 14:24 0.4 mg STAT ONE Administration Nitroglycerin Confirm 08/26/24 14:24 Nitroglycerin 0.4 Mg (Ed) 0.4 Mg Tab.Subl Administered 08/26/24 14:25 Dose 0.4 mg SL .STK-MED ONE Ondansetron HCl Confirm 08/26/24 14:49 Ondansetron Hcl 4 Mg/2 Ml Vial Administered 08/26/24 14:50 Dose 4 mg .ROUTE .STK-MED ONE Ondansetron HCl 4 mg 08/26/24 14:50 08/26/24 14:52 Ondansetron Hcl 4 Mg/2 Ml Vial IV 08/26/24 14:51 4 mg STAT ONE Administration Lab/Rad Data: Laboratory Result Diagrams 08/26/24 Unknown 08/26/24 14:35 Laboratory Results 08/26/24 08/26/24 08/26/24 Range/Units Unknown 17:40 17:07 WBC 13.2 H (4.23-9.07) x10^3/uL RBC 4.62 L (4.63-6.08) x10^6/uL Hgb 14.2 (13.7-17.5) g/dL Hct 39.7 L (40.1-51.0) % MCV 85.9 (79.0-92.2) fL MCH 30.7 (25.7-32.2) pg MCHC 35.8 (32.3-36.5) g/dL RDW 12.6 (11.6-14.4) % Plt Count 224 (163-337) x10^3/uL MPV 12.1 (9.4-12.4) fL Gran % 76.6 H (34.0-67.9) % Immature Gran % (Auto) 0.9 H (0.001-0.429) % Nucleat RBC Rel Count 0.0 (0.00-0.2) % Eos # (Auto) 0.07 (0.04-0.54) x10^3/uL Immature Gran # (Auto) 0.12 H (0.001-0.031) x10^3u/L Absolute Lymphs (auto) 1.39 (1.32-3.57) x10^3/uL Absolute Monos (auto) 1.43 H (0.30-0.82) x10^3/uL Absolute Nucleated RBC 0.00 (0.00-0.012) x10^3u/L Lymphocytes % 10.6 L (21.8-53.1) % Monocytes % 10.9 (5.3-12.2) % Eosinophils % 0.5 L (0.8-7.0) % Basophils % 0.5 (0.2-1.2) % Absolute Granulocytes 10.09 H (1.78-5.38) x10^3/uL Basophils # 0.06 (0.01-0.08) x10^3/uL PT (9.4-12.5) SECONDS INR (0.8-3.0) D-Dimer (0.0-0.50) mg/L Puncture Site pCO2 (35-45) mmHg pO2 (75-100) mmHg Base Excess (-2.0-2.0) O2 Saturation (94-100) g/dF ABG pH (7.35-7.45) ABG HCO3 (22-28) ABG O2 Sat (Measured) (95-100) % Pasha Test A-a Gradient a/A Ratio Hemoglobin Carboxyhemoglobin (0.0-6.9) % THgb Methemoglobin (1.4-1.5) % Potassium (3.5-5.1) Temperature C POC O2 Flow Rate % Sodium (135-145) mmol/L Chloride (98-107) mmol/L Carbon Dioxide (22-30) mmol/L Anion Gap (5-15) MEQ/L BUN (9-20) mg/dL Creatinine (0.66-1.25) mg/dL Estimated GFR ML/MIN Glucose (74-106) mg/dL POC Glucometer 337 H (74 to 106) mg/dL Calcium (8.4-10.2) mg/dL Total Bilirubin (0.2-1.3) mg/dL AST (17-59) U/L ALT (0-50) U/L Alkaline Phosphatase (38-126) U/L Troponin I 0.028 (0.000-0.033) ng/mL NT-Pro-B Natriuret Pep (<300) pg/mL Serum Total Protein (6.3-8.2) g/dL Albumin (3.5-5.0) g/dL 08/26/24 08/26/24 08/26/24 Range/Units 15:57 14:35 14:35 WBC (4.23-9.07) x10^3/uL RBC (4.63-6.08) x10^6/uL Hgb (13.7-17.5) g/dL Hct (40.1-51.0) % MCV (79.0-92.2) fL MCH (25.7-32.2) pg MCHC (32.3-36.5) g/dL RDW (11.6-14.4) % Plt Count (163-337) x10^3/uL MPV (9.4-12.4) fL Gran % (34.0-67.9) % Immature Gran % (Auto) (0.001-0.429) % Nucleat RBC Rel Count (0.00-0.2) % Eos # (Auto) (0.04-0.54) x10^3/uL Immature Gran # (Auto) (0.001-0.031) x10^3u/L Absolute Lymphs (auto) (1.32-3.57) x10^3/uL Absolute Monos (auto) (0.30-0.82) x10^3/uL Absolute Nucleated RBC (0.00-0.012) x10^3u/L Lymphocytes % (21.8-53.1) % Monocytes % (5.3-12.2) % Eosinophils % (0.8-7.0) % Basophils % (0.2-1.2) % Absolute Granulocytes (1.78-5.38) x10^3/uL Basophils # (0.01-0.08) x10^3/uL PT 11.2 (9.4-12.5) SECONDS INR 1.03 (0.8-3.0) D-Dimer 1.82 H* (0.0-0.50) mg/L Puncture Site pCO2 (35-45) mmHg pO2 (75-100) mmHg Base Excess (-2.0-2.0) O2 Saturation (94-100) g/dF ABG pH (7.35-7.45) ABG HCO3 (22-28) ABG O2 Sat (Measured) (95-100) % Pasha Test A-a Gradient a/A Ratio Hemoglobin Carboxyhemoglobin (0.0-6.9) % THgb Methemoglobin (1.4-1.5) % Potassium 3.8 (3.5-5.1) Temperature C POC O2 Flow Rate % Sodium 132 L (135-145) mmol/L Chloride 94 L (98-107) mmol/L Carbon Dioxide 17 L (22-30) mmol/L Anion Gap 24.4 H (5-15) MEQ/L BUN 13 (9-20) mg/dL Creatinine 0.84 (0.66-1.25) mg/dL Estimated GFR 100.5 ML/MIN Glucose 587 H* (74-106) mg/dL POC Glucometer 448 H (74 to 106) mg/dL Calcium 9.4 (8.4-10.2) mg/dL Total Bilirubin 1.10 (0.2-1.3) mg/dL AST 16 L (17-59) U/L ALT 20 (0-50) U/L Alkaline Phosphatase 123 (38-126) U/L Troponin I 0.030 (0.000-0.033) ng/mL NT-Pro-B Natriuret Pep 665 (<300) pg/mL Serum Total Protein 7.5 (6.3-8.2) g/dL Albumin 4.0 (3.5-5.0) g/dL 09/30/24 Range/Units 14:15 WBC (4.23-9.07) x10^3/uL RBC (4.63-6.08) x10^6/uL Hgb (13.7-17.5) g/dL Hct (40.1-51.0) % MCV (79.0-92.2) fL MCH (25.7-32.2) pg MCHC (32.3-36.5) g/dL RDW (11.6-14.4) % Plt Count (163-337) x10^3/uL MPV (9.4-12.4) fL Gran % (34.0-67.9) % Immature Gran % (Auto) (0.001-0.429) % Nucleat RBC Rel Count (0.00-0.2) % Eos # (Auto) (0.04-0.54) x10^3/uL Immature Gran # (Auto) (0.001-0.031) x10^3u/L Absolute Lymphs (auto) (1.32-3.57) x10^3/uL Absolute Monos (auto) (0.30-0.82) x10^3/uL Absolute Nucleated RBC (0.00-0.012) x10^3u/L Lymphocytes % (21.8-53.1) % Monocytes % (5.3-12.2) % Eosinophils % (0.8-7.0) % Basophils % (0.2-1.2) % Absolute Granulocytes (1.78-5.38) x10^3/uL Basophils # (0.01-0.08) x10^3/uL PT (9.4-12.5) SECONDS INR (0.8-3.0) D-Dimer (0.0-0.50) mg/L Puncture Site RIGHT RADIAL pCO2 26 L (35-45) mmHg pO2 74 L (75-100) mmHg Base Excess -8.5 L (-2.0-2.0) O2 Saturation 94.9 (94-100) g/dF ABG pH 7.37 (7.35-7.45) ABG HCO3 15.0 L* (22-28) ABG O2 Sat (Measured) 96.9 (95-100) % Pasha Test YES A-a Gradient 43 a/A Ratio 0.63 Hemoglobin 14.1 Carboxyhemoglobin 1.3 (0.0-6.9) % THgb Methemoglobin 0.8 L (1.4-1.5) % Potassium 3.6 (3.5-5.1) Temperature 37.0 C POC O2 Flow Rate 21 % Sodium (135-145) mmol/L Chloride (98-107) mmol/L Carbon Dioxide (22-30) mmol/L Anion Gap (5-15) MEQ/L BUN (9-20) mg/dL Creatinine (0.66-1.25) mg/dL Estimated GFR ML/MIN Glucose (74-106) mg/dL POC Glucometer (74 to 106) mg/dL Calcium (8.4-10.2) mg/dL Total Bilirubin (0.2-1.3) mg/dL AST (17-59) U/L ALT (0-50) U/L Alkaline Phosphatase (38-126) U/L Troponin I (0.000-0.033) ng/mL NT-Pro-B Natriuret Pep (<300) pg/mL Serum Total Protein (6.3-8.2) g/dL Albumin (3.5-5.0) g/dL - Progress Progress: improved, re-examined Air Movement: fair Progress Note: 08/26/24 14:26 59 years old male presenting with chief complaint of shortness of breath started after he felt something moving from his left calf to his left lung that started yesterday evening. Also pleuritic chest pain that is worse with taking deep breaths and or coughing. The patient has a history of CHF, coronary artery disease, type 2 diabetes. He took aspirin at home and he took some sublingual nitroglycerin with Relief. In the Emergency Room His EKG Sinus Tachycardia 120 Bpm, Q Waves in Inferior Leads III, ST Depression V4 V5 V6. The Patient Accu-Chek Is Elevated 590 Will Be Given Regular Insulin 10 Units IV. Check CBC, CMP, Troponin, D-Dimer, Chest X-Ray, Serum Ketones. 08/26/24 15:32 The Patient's workup, sodium 132, potassium 3.8, chloride 94, bicarb 17, glucose 587. Anion gap 24.4 Serum ketones not available as tested over emergency room. Troponin normal at 0.03 D-dimer elevated at 1.82 Chest x-ray left sided infiltrate CTA of the chest rule out PE. For the Chest pain, the patient will be given Morphine 4 mg IV. 08/26/24 17:06 CTA of the chest demonstrated new left hilar soft tissue mass/lymphadenopathy effacing the left upper bronchus with near complete postobstructive atelectasis of the left The patient was updated with the above results. He is still having the left- sided chest pain in spite of the morphine and Dilaudid given. Will attempt to transfer the patient to higher level of care where pulmonary service is available. 08/26/24 17:54 The case is discussed with the hospitality house supervisor, at [facility], he wants the patient to be transferred under the hospitalist service. The case is discussed with Dr. Peck, the ER Physician. the patient has been accepted. He will be transferred to [facility]. 08/26/24 18:04 08/26/24 19:23 The patient is stable to be transferred he still complaining of his left-sided chest pain he will be given Dilaudid 1 mg IV prior to transfer. Counseled pt/family regarding: lab results, diagnosis, rad results - Departure Departure Disposition: Transfer ([facility].) Clinical Impression: Left-sided chest pain, Mass of left lung Condition: Stable Critical Care Time: Yes Critical Care Time(excluding separately billable procedures): Critical 75-104 mins Referrals: DOCTOR,NO FAMILY [Primary Care Provider] - Follow up/PCP as directed
[2024-08-26] MEDS ORDERED: Nitrostat 0.4 MG (ED) SL ONE (14:24)
[2024-08-26] MEDS ORDERED: BABY ASPIRIN 81 MG CHEW ONE (14:24)
[2024-08-26] MEDS: BABY ASPIRIN 81 MG CHEW PO ONE (14:25)
[2024-08-26] MEDS: Nitrostat 0.4 MG Tablet SL ONE (14:25)
[2024-08-26 14:26] LABS: A-aADO2 43; ABG HEMOGLOBIN 14.1; ABG POTASSIUM 3.6 (3.5-5.1); ARTERIAL BLD GAS O2 SATURATION 96.9 % (95-100); ARTERIAL BLOOD GAS BASE EXCESS -8.5 (-2.0-2.0); ARTERIAL BLOOD GAS FIO2 21 %; ARTERIAL BLOOD GAS PCO2 26 mmHg (35-45); ARTERIAL BLOOD GAS PO2 74 mmHg (75-100); ARTERIAL BLOOD GAS pH 7.37 (7.35-7.45); CARBOXYHEMOGLOBIN 1.3 % THgb (0.0-6.9); HGB O2 SAT 94.9 g/dF (94-100); Methhemoglobin 0.8 % (1.4-1.5); paO2 pAO1 0.63
[2024-08-26 14:27] LABS: ABG SITE RIGHT RADIAL; ALLEN TEST OK? YES
--- NOTE | 2024-08-26 14:32 | XRAY ---
Indication: Left chest pain. Short of breath. Comparison: March 20, 2022 Portable chest demonstrates new diffuse left lung infiltrate/atelectasis with left lung volume loss. Remaining heart and right lung unremarkable. Bony thorax intact again with osteopenia and old left clavicle fracture.
[2024-08-26 14:38] LABS: Absolute Neutrophil Ct (ANC) 10.09 x10^3/uL (1.78-5.38); BASOPHIL % 0.5 % (0.2-1.2); Basophil (Absolute #) 0.06 x10^3/uL (0.01-0.08); Eosinophil % 0.5 % (0.8-7.0); Eosinophil (Absolute #) 0.07 x10^3/uL (0.04-0.54); Hematocrit 39.7 % (40.1-51.0); Hemoglobin 14.2 g/dL (13.7-17.5); IMMATURE GRAN # 0.12 x10^3u/L (0.001-0.031); IMMATURE GRAN % 0.9 % (0.001-0.429); Lymphocyte (Absolute #) 1.39 x10^3/uL (1.32-3.57); Lymphocytes % 10.6 % (21.8-53.1); Mean Cell Volume 85.9 fL (79.0-92.2); Mean Corpuscular Hemoglobin 30.7 pg (25.7-32.2); Mean Corpuscular Hgb Concent. 35.8 g/dL (32.3-36.5); Mean Platelet Volume 12.1 fL (9.4-12.4); Monocyte (Absolute #) 1.43 x10^3/uL (0.30-0.82); Monocytes % 10.9 % (5.3-12.2); Neutrophil % 76.6 % (34.0-67.9); Platelet Count 224 x10^3/uL (163-337); Red Blood Count 4.62 x10^6/uL (4.63-6.08); Red Cell Distribution Width 12.6 % (11.6-14.4); White Blood Count 13.2 x10^3/uL (4.23-9.07)
[2024-08-26] MEDS ORDERED: Zofran 4 MG/2 ML VIAL ONE (14:49)
[2024-08-26] MEDS ORDERED: MORPHINE SULFATE 4 MG INJ ONE (14:50)
[2024-08-26] MEDS: Zofran 4 MG/2 ML VIAL IV ONE (14:52)
[2024-08-26] MEDS: MORPHINE SULFATE 4 MG INJ IV ONE (14:54)
[2024-08-26 15:02] LABS: ANION GAP 24.4 MEQ/L (5-15); BILIRUBIN,TOTAL 1.1 mg/dL (0.2-1.3); Calcium 9.4 mg/dL (8.4-10.2); Creatinine 1 0.84 mg/dL (0.66-1.25); EST GLOMERULAR FILTRATION RATE 100.5 ML/MIN; Potassium 3.8 mmol/L (3.5-5.1); TROPONIN 0.03 ng/mL (0.000-0.033); Total Protein 7.5 g/dL (6.3-8.2)
[2024-08-26 15:21] LABS: INR 1.03 (0.8-3.0); PROTIME 11.2 SECONDS (9.4-12.5)
[2024-08-26 15:24] LABS: D-DIMER QUANTITATIVE 1.82 mg/L (0.0-0.50)
[2024-08-26] MEDS ORDERED: HUMULIN R ONE (15:27)
[2024-08-26] MEDS: HUMULIN R IV ONE (15:27)
[2024-08-26] MEDS: Sodium Chloride 0.9% 1000 ML 1,000 ML IV STA (15:39)
[2024-08-26] MEDS ORDERED: Hydromorphone 1 mg/ml Injection ONE ×2 (16:01→19:19)
[2024-08-26] MEDS: Hydromorphone 1 mg/ml Injection IV ONE ×2 (16:02→19:15)
--- NOTE | 2024-08-26 16:44 | XRAY ---
Indication: Pulmonary embolus. Left chest pain. Multiple contiguous axial images obtained through the chest using 80 cc Isovue 370 contrast and PE protocol. Comparison: March 24, 2024 Suboptimal opacification pulmonary arteries limits evaluation for pulmonary embolus. No obvious central pulmonary embolus. Heart not enlarged. Aorta is normal in course and caliber. New 2.4 x 2.8 cm left hilar soft tissue mass/lymphadenopathy effacing left upper lobe bronchus with subsequent near complete postobstructive atelectasis. New tiny left effusion. Previous right lower lobe opacities have cleared. Stable 3 mm right middle lobe noncalcified subpleural nodule. Bony thorax intact with stable superior T12 Schmorl node. No suspicious bony lesions. Limited upper abdomen again demonstrates fatty liver and cholecystectomy clips. Impression: 1. Pulmonary embolus evaluation limited due to suboptimal contrast opacification. No obvious central pulmonary embolus. 2. New left hilar soft tissue mass/lymphadenopathy as detailed effacing left upper lobe bronchus. Subsequent near complete postobstructive atelectasis and tiny left effusion. 3. Stable tiny right middle lobe subpleural noncalcified nodule, probably granulomatous. 4. Chronic findings including T12 Schmorl node and fatty liver.
[2024-08-26 17:04] VITALS: BP 150/81; PULSE 102; RESP 19
[2024-08-26 17:09] VITALS: O2SAT 96
== END 2024-08-26 19:21 | disposition short-term general hospital (02) ==
LOC: ED 13:46
DX: R07.9 Chest pain, unspecified (principal); R91.8 Other nonspecific abnormal finding of lung field; R06.02 Shortness of breath; E11.65 Type 2 diabetes mellitus with hyperglycemia; E11.42 Type 2 diabetes mellitus with diabetic polyneuropathy; I50.9 Heart failure, unspecified; Z79.84 Long term (current) use of oral hypoglycemic drugs; Z79.4 Long term (current) use of insulin; Z79.899 Other long term (current) drug therapy
CPT/HCPCS: 36000; 36415; 36600; 71045; 71260; 80053; 82375; 82803; 82947; 83525; 83880; 84484; 85025; 85379; 85610; 87040; 93005; 96374; 96375; 96376; 99285; 99291; 99292; J1170; J1815; J2270; J2405; A9270-GY